=== PATIENT | female | born 1965 | race Asian ===

== ENCOUNTER 2024-12-28 04:05 | Inpatient (IN) | payer OTHER ==
[~2024-12-28] VITALS: Ht 162.6 cm; Wt 80.0 kg
--- NOTE | 2024-12-28 04:33 | ECG ---
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
--- NOTE | 2024-12-28 04:47 | ED.PDOC ---
History of Present Illness HPI Comments 59 year old female presents to the ED via EMS with a chief complaint of syncope onset today (12/28/24). Per EMS, patient experienced syncopal episode, unknown down time, BGL was 152. Patient states she began experiencing dizziness, sweats prior to syncopal episode. She experienced similar symptoms about 2 weeks ago. Denies any nausea, vomiting, diarrhea, headache, chest pain, shortness of breath, dysuria. No other symptoms or modifying factors present at this time. 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 APPRENTICE History: No Pertinent MOLDER APPRENTICE History Family History Family History: Reviewed,noncontributory to illness, No family hx of Cancer, No family hx of DM, No family hx of Heart yosef, No family hx of HTN, No family hx ofKidney yosef, No family hx of Liver yosef, No family hx of Lung yosef, No family hx of Stroke Social History Smoker: Non-Smoker Alcohol: Denies ETOH Use Drugs: Denies Drug Use Lives In: Home Constitutional: reports: sweats; denies: chills, diaphoresis, fatigue, fever, malaise, weakness, others EENTM: denies: blurred vision, double vision, ear bleeding, ear discharge, ear drainage, ear pain, ear ringing, eye pain, eye redness, hearing loss, mouth pain, mouth swelling, nasal discharge, nose bleeding, nose congestion, nose pain, photophobia, tearing, throat pain, throat swelling, voice changes, others Respiratory: denies: cough, hemoptysis, orthopnea, SOB at rest, shortness of breath, SOB with excertion, stridor, wheezing, others Cardiovascular: denies: chest pain, dizzy spells, diaphoresis, Dyspnea on exertion, edema, irregular heart beat, left arm pain, lightheadedness, palpitations, PND, syncope, others Gastrointestinal: denies: abdomen distended, abdominal pain, blood streaked bowels, constipated, diarrhea, dysphagia, difficulty swallowing, hematemesis, melena, nausea, poor appetite, poor fluid intake, rectal bleeding, rectal pain, vomiting, others Genitourinary: denies: abnormal vagina bleeding, burning, dyspareunia, dysuria, flank pain, frequency, hematuria, incontinence, pain, , vagina discharge, urgency, others Neurological: reports: dizziness, others (syncope); denies: fainting, headache, left sided numbness, left sided weakness, numbness, paresthesia, pre-existing deficit, right sided numbness, right sided weakness, seizure, speech problems, tingling, tremors, weakness Musculoskeletal: denies: back pain, gout, joint pain, joint swelling, muscle pain, muscle stiffness, neck pain, others Integumetry: denies: bruises, change in color, change in hair/nails, dryness, laceration, lesions, lumps, rash, wounds, others Hematologic/Lymphatic: denies: anemia, blood clots, easy bleeding, easy bruising, swollen glands, others Endocrine: denies: excessive hunger, excessive sweating, excessive thirst, excessive urination, flushing, intolerance to cold, intolerance to heat, unexplained weight gain, unexplained weight loss, others Psychiatric: denies: anxiety, bipolar disorder, depression, hopeless, panic disorder, schizophrenia, sleepless, suicidal, others All Other Systems: Reviewed and Negative Physical Exam General Appearance: Normal HEENT: Normal ENT Inspection, Pharynx Normal, TMs Normal Neck: Full Range of Motion, Non-Tender, Normal, Normal Inspection Respiratory: Chest Non-Tender, Lungs Clear, No Accessory Muscle Use, No Respiratory Distress, Normal Breath Sounds Cardiovascular: No Edema, No JVD, No Murmur, No Gallop, Normal Peripheral P ulses, Regular Rate/Rhythm Breast Exam: Deferred Gastrointestinal: No Organomegaly, Non Tender, No Pulsatile Mass, Normal Bowel Sounds, Soft Genitalia: Deferred Pelvic: Deferred Rectal: Deferred Extremities: No calf tenderness, Normal capillary refill, Normal inspection, Normal range of motion, Non-tender, No pedal edema Musculoskeletal : Apperance: Normal Neurologic: Alert, land developer II-XII nml as Tested, No Motor Deficits, Normal Affect, Normal Mood, No Sensory Deficits Cerebellar Function: Normal Reflexes: Normal Skin: Dry, Normal Color, Warm Lymphatic: No Adenopathy Was a procedure done? Was a procedure done?: No Differential Dx Considerations may include: ACS, CVA, viral syndrome, electrolyte abnormality, infectious etiology, cardiac arrhythmia X-Ray, Labs, Meds, VS Vital Signs Date Time Temp Pulse Resp B/P (MAP) Pulse Ox O2 Delivery O2 Flow Rate FiO2 12/28/24 04:24 97.8 72 18 117/75 (89) 98 97.8 12/28/24 04:15 67 Lab Test 12/28/24 05:01 Range/Units White Blood Count 5.6 4.4-10.8 10^3/uL Red Blood Count 4.46 4.0-5.20 10^6/uL Hemoglobin 14.0 12.2-16.2 g/dL Hematocrit 40.8 36.0-46.0 % Mean Corpuscular Volume 91.6 80.0-100.0 fL Mean Corpuscular Hemoglobin 31.4 28.0-32.0 pg Mean Corpuscular Hemoglobin Concent 34.3 32.0-36.0 g/dL Red Cell Distribution Width 12.6 11.8-14.3 % Platelet Count 229 140-450 10^3/uL Mean Platelet Volume 8.6 6.9-10.8 fL Neutrophils (%) (Auto) 61.6 37.0-80.0 % Lymphocytes (%) (Auto) 30.7 10.0-50.0 % Monocytes (%) (Auto) 5.0 0.0-12.0 % Eosinophils (%) (Auto) 1.9 0.0-7.0 % Basophils (%) (Auto) 0.8 0.0-2.0 % Neutrophils # (Auto) 3.4 1.6-8.6 10 ^3/uL Lymphocytes # (Auto) 1.7 0.4-5.4 10 ^3/uL Monocytes # (Auto) 0.3 0-1.3 10 ^3/uL Eosinophils # (Auto) 0.1 0-0.8 10 ^3/uL Basophils # (Auto) 0 0-0.2 10 ^3/uL Nucleated Red Blood Cells 0.0 % Sodium Level 139 136-145 mmol/L Potassium Level 3.8 3.5-5.1 mmol/L Chloride Level 105 98-107 mmol/L Carbon Dioxide Level 23 20-31 mmol/L Anion Gap 11 5-15 Blood Urea Nitrogen 11 9-23 mg/dL Creatinine 0.73 0.550-1.02 mg/dL Glomerular Filtration Rate Calc 96 >90 mL/min BUN/Creatinine Ratio 15.1 10.0-20.0 Serum Glucose 163 H 74-106 mg/dL Calcium Level 10.0 8.7-10.4 mg/dL Troponin I High Sensitivity < 3 L </=34 ng/L Time of 1ST Reevaluation: 05:00 Reevaluation 1ST: Unchanged Patient Education/Counseling: Diagnosis, Treatment, Prognosis Family Education/Counseling: No Family Present SEPSIS Sepsis Screen Date sepsis recognized/suspect: Dec 28, 2024 Time Sepsis recognized/suspect: 412 Recent Procedure: No On Antibiotic Therapy: No Respiratory Rate >20: No Heart Rate >90: No Temp<36 C (96.8 F) or >38.3 C: No SBP <90 or MAP <65 mmHG: No New Acute Mental Status Change: No Is the patient on CPAP, BIPAP,: No Physician Orders Urinalysis (12/28/24 04:32) Chest Portable (12/28/24 04:32) Head Without Contrast (12/28/24 04:32) Troponin-I Hs (12/28/24 05:32) Troponin-I Hs (12/28/24 07:32) Electrocardigram (12/28/24 05:32) Electrocardigram (12/28/24 07:32) Vital Signs Date Time Temp Pulse Resp B/P (MAP) Pulse Ox O2 Delivery O2 Flow Rate FiO2 12/28/24 04:24 97.8 72 18 117/75 (89) 98 97.8 12/28/24 04:15 67 Laboratory Tests Test 12/28/24 05:01 White Blood Count 5.6 10^3/uL (4.4-10.8) Departure 1 Departure Time of Disposition: 05:47 (Patient presented with syncope today and should be admitted. Data: 1. I ordered and reviewed the result of at least 3 labs including a CBC, BMP, and troponin. 2. I independently interpreted the following tests: EKG which shows a sinus arrhythmia and a chest x-ray which shows benign chest and a CT head which shows benign brain.Risk:This patient has a high risk of morbidity due to further diagnostic testing or treatment and may suffer from an acute cardiac, neurologic, or infectious disorder. Rationale: Patient should be admitted to the hospital for further management.) Impression: Primary Impression: Syncope and collapse Additional Impressions: Generalized weakness Dizziness Disposition: ADMITTED INPATIENT Admit to: Med Surg Condition: Guarded Critical Care Note Critical Care Time?: Yes Critical care comment: Syncope and collapse Authorized and Performed by: Eduar Hyatt MD Total critical care time: Approximately 39 minutes Due to a high probability of clinically significant, life threatening deterioration, the patient required my highest level of preparedness to intervene emergently and I personally spent this critical care time directly and personally managing the patient. This critical care time included obtaining a history; examining the patient; pulse oximetry; ordering and review of studies; arranging urgent treatment with development of a management plan; evaluation of patient's response to treatment; frequent reassessment; and, discussions with other providers. This critical care time was performed to assess and manage the high probability of imminent, life-threatening deterioration that could result in multi-organ failure. It was exclusive of separately billable procedures and treating other patients and teaching time. Please see my other sections and the rest of the note for further information on patient assessment and treatment. Stability Stability form required: No I personally scribed for EDUAR HYATT MD ([email or web address]) on 12/28/24 at 04:47. Electronically submitted by Isabella Soto ([email or web address]). EDUAR HYATT MD Dec 28, 2024 04:47
--- NOTE | 2024-12-28 05:12 | DVH ---
CHEST RADIOGRAPH Indication: dizziness Technique: Single frontal view of the chest was obtained COMPARISON: None FINDINGS: Lines and Tubes: None Lungs: Clear Pleura: No effusion. No pneumothorax. Cardiomediastinal contours: Unremarkable Bones: Unremarkable IMPRESSION: No acute disease.
--- NOTE | 2024-12-28 05:17 | DVH ---
EXAM: CT HEAD WITHOUT CONTRAST HISTORY: dizziness COMPARISON: None TECHNIQUE: Noncontrast axial CT images of the head were performed. Sagittal and coronal reformatted i mages were obtained. This CT exam was performed using 1 or more of the following dose reduction techn iques: Automated exposure control, adjustment of the mA and/or kv according to patient size, or the u se of iterative reconstruction techniques. Radiation Dose: CTDI volume is 52.27 mGy. Dose-length product is 838.01 mGy*cm FINDINGS: No intracranial hemorrhage, mass, midline shift, hydrocephalus, or evidence of acute large vessel inf arct. The partially-visualized paranasal sinuses are clear. There is a left josh bullosa. Probable Postoperative changes of rhinoplasty. The bilateral mastoid air cells and middle ear spaces are clear . No cranial fracture or scalp edema. Probable left frontal supraorbital scalp scarring. IMPRESSION: No acute intracranial process.
[2024-12-28 05:33] LABS: Basophils # (auto) 0 10 ^3/uL (0-0.2); Basophils % (auto) 0.8 % (0.0-2.0); Eosinophils # (auto) 0.1 10 ^3/uL (0-0.8); Eosinophils % (auto) 1.9 % (0.0-7.0); Hematocrit 40.8 % (36.0-46.0); Lymphocytes # (auto) 1.7 10 ^3/uL (0.4-5.4); Lymphocytes % (auto) 30.7 % (10.0-50.0); Mean Corpuscular Hemoglobin 31.4 pg (28.0-32.0); Mean Corpuscular Hgb Conc. 34.3 g/dL (32.0-36.0); Mean Corpuscular Volume 91.6 fL (80.0-100.0); Monocytes # (auto) 0.3 10 ^3/uL (0-1.3); Neutrophils # (auto) 3.4 10 ^3/uL (1.6-8.6); Neutrophils % (auto) 61.6 % (37.0-80.0); Platelet Count (auto) 229 10^3/uL (140-450); Red Blood Cells 4.46 10^6/uL (4.0-5.20); Red Cell Distribution Width 12.6 % (11.8-14.3); White Blood Cell 5.6 10^3/uL (4.4-10.8)
[2024-12-28 05:37] LABS: Chloride 105 mmol/L (98-107); Potassium 3.8 mmol/L (3.5-5.1); Sodium 139 mmol/L (136-145)
[2024-12-28 05:38] LABS: Anion Gap 11 (5-15); Carbon Dioxide 23 mmol/L (20-31)
[2024-12-28 05:43] LABS: BUN/Creatinine Ratio 15.1 (10.0-20.0); Blood Urea Nitrogen 11 mg/dL (9-23)
[2024-12-28 05:44] LABS: Glucose 163 mg/dL (74-106)
[2024-12-28 07:45] LABS: Urine Bacteria None Seen /hpf (None Seen)
[2024-12-28 08:04] LABS: Urine Blood Negative /uL (Negative); Urine Clarity Clear (Clear); Urine Color Light-Yellow (Yellow); Urine Protein, UAD Negative (Negative); Urine Specific Gravity 1.009 (1.001-1.035); Urine Squamous Epithelial Cell FEW /hpf (<5); Urine Urobilinogen Normal (Negative); Urine WBC 11 /HPF (0-5)
[2024-12-28] MEDS ORDERED: HYDROcodone-ACET 5/325MG TAB PO PRN (08:15)
[2024-12-28] MEDS ORDERED: DOCUSATE SOD 100 MG CAP PO PRN (08:15)
[2024-12-28] MEDS ORDERED: ONDANSETRON HCL 4 MG/2 ML VIAL IV PRN (08:15)
[2024-12-28] MEDS ORDERED: NITROGLYCERIN 0.4 MG SL TAB SL PRN (08:15)
[2024-12-28] MEDS ORDERED: DEXTROSE (50%) 50ML SYRG IV PRN (08:15)
[2024-12-28] MEDS ORDERED: MORPHINE SULFATE INJ 2 MG/ml SYRG IV PRN (08:15)
[2024-12-28] MEDS ORDERED: LOSA-535 PO (08:59)
[2024-12-28] MEDS ORDERED: METF-370 PO (08:59)
[2024-12-28] MEDS ORDERED: ATOR10TA52 PO (08:59)
--- NOTE | 2024-12-28 09:10 | DVHHP2 ---
History of Present Illness Reason for Visit: Syncope History of Present Illness Cheryl Alvarado, is a 59-year-old female with past medical history of hypertension, hyperlipidemia, and diabetes who came to the hospital after a syncopal episode. Patient states she woke up early this morning to go to the bathroom. While walking to the bathroom she began to feel dizzy, hot, nauseated, and then had a syncopal episode. When she came around she called for her spouse, he came to her in the bathroom, and then she had another syncopal episode. She states she has never had anything like this before. Cardiovascular: HTN, hyperipidemia Endocrine: Diabetes Past Surgical History: Hysterectomy Smoke: No ALCOHOL: none Drugs: None Lives: with Family Domestic Violence: Neg Review of Systems Constitutional: No: Fever, Chills, Sweats, Weakness, Malaise, Other Eyes: No: Pain, Vision change, Conjunctivae inflammation, Eyelid inflammation, Other, Redness ENT: No: Ear pain, Ear discharge, Nose pain, Nose discharge, Nose congestion, Mouth pain, Mouth swelling, Throat pain, Throat swelling, Other Respiratory: No: Cough, Dry, Shortness of breath, SOB with excertion, Wheezing, Hemoptysis, Pleuritic Pain, Sputum, Wheezing, Other Cardiovascular: No: Chest Pain, Palpitations, Orthopnea, Paroxysmal Noc. Dyspnea, Edema, Lt Headedness, Other Gastrointestinal: No: Nausea, Vomiting, Abdominal Pain, Diarrhea, Constipation, Melena, Hematochezia, Other Genitourinary: No Dysuria, No Frequency, No Incontinence, No Hematuria, No Retention, No Other Musculoskeletal: No: other, neck pain, shoulder pain, arm pain, back pain, hand pain, leg pain, foot pain Skin: No: Rash, Lesions, Jaundice, Bruising, Other Neurological: Weakness, Other (syncope); No: Numbness, Incoordination, Change in speech, Confusion, Seizures Allergies: Coded Allergies: No Known Drug Allergy (Verified Allergy, Unknown, 12/28/24) Medications Current Medications Medications Dose Ordered Sig/Xiomara Route Start Time Stop Time Status Last Admin Dose Admin Acetaminophen/ Hydrocodone Bitart 1 tab Q4HP PRN PO 12/28/24 08:15 UNV Ondansetron HCl 4 mg Q4HP PRN IV 12/28/24 08:15 UNV Docusate Sodium 100 mg BIDPRN PRN PO 12/28/24 08:15 UNV Acetaminophen 650 mg Q6HP PRN PO 12/28/24 08:15 UNV Nitroglycerin 0.4 mg Q5MINP PRN SL 12/28/24 08:15 UNV Morphine Sulfate 2 mg Q30M PRN IV 12/28/24 08:15 UNV Diagnostic Test (Pha) 1 strip ACHS 12/28/24 11:30 UNV Insulin Human Regular ACHS SC 12/28/24 11:30 UNV Dextrose 50 ml UD PRN IV 12/28/24 08:15 UNV Exam Vital Signs Vital Signs Date Time Temp Pulse Resp B/P (MAP) Pulse Ox O2 Delivery O2 Flow Rate FiO2 12/28/24 07:17 97.7 82 18 147/81 (103) 93 97.7 General Appearance: Alert, Oriented X3, Cooperative, No acute distress HEENT: Atraumatic, PERRLA, Mucous membr. moist/pink Respiratory: Clear to auscultation, Normal air movement Cardiovascular: Regular rate, Normal S1, Normal S2, No murmurs Abdominal: Normal bowel sounds, Soft, No tenderness, No hepatospenomegaly Extremities: No clubbing, No cyanosis, No edema, Normal pulses, No tenderness/swelling Skin: No rashes, No breakdown, No significant lesion Neuro: Normal gait, Normal speech, Strength at 5/5 X4 ext, Normal tone Psych/Mental Status: Mental status NL, Mood NL Labs/Xrays Labs Test 12/28/24 07:44 12/28/24 06:01 12/28/24 05:01 Range/Units Troponin I High Sensitivity < 3 L </=34 ng/L White Blood Count 5.6 4.4-10.8 10^3/uL Red Blood Count 4.46 4.0-5.20 10^6/uL Hemoglobin 14.0 12.2-16.2 g/dL Hematocrit 40.8 36.0-46.0 % Mean Corpuscular Volume 91.6 80.0-100.0 fL Mean Corpuscular Hemoglobin 31.4 28.0-32.0 pg Mean Corpuscular Hemoglobin Concent 34.3 32.0-36.0 g/dL Red Cell Distribution Width 12.6 11.8-14.3 % Platelet Count 229 140-450 10^3/uL Mean Platelet Volume 8.6 6.9-10.8 fL Neutrophils (%) (Auto) 61.6 37.0-80.0 % Lymphocytes (%) (Auto) 30.7 10.0-50.0 % Monocytes (%) (Auto) 5.0 0.0-12.0 % Eosinophils (%) (Auto) 1.9 0.0-7.0 % Basophils (%) (Auto) 0.8 0.0-2.0 % Neutrophils # (Auto) 3.4 1.6-8.6 10 ^3/uL Lymphocytes # (Auto) 1.7 0.4-5.4 10 ^3/uL Monocytes # (Auto) 0.3 0-1.3 10 ^3/uL Eosinophils # (Auto) 0.1 0-0.8 10 ^3/uL Basophils # (Auto) 0 0-0.2 10 ^3/uL Nucleated Red Blood Cells 0.0 % Sodium Level 139 136-145 mmol/L Potassium Level 3.8 3.5-5.1 mmol/L Chloride Level 105 98-107 mmol/L Carbon Dioxide Level 23 20-31 mmol/L Anion Gap 11 5-15 Blood Urea Nitrogen 11 9-23 mg/dL Creatinine 0.73 0.550-1.02 mg/dL Glomerular Filtration Rate Calc 96 >90 mL/min BUN/Creatinine Ratio 15.1 10.0-20.0 Serum Glucose 163 H 74-106 mg/dL Calcium Level 10.0 8.7-10.4 mg/dL CHEST RADIOGRAPH FINDINGS: Lines and Tubes: None Lungs: Clear Pleura: No effusion. No pneumothorax. Cardiomediastinal contours: Unremarkable Bones: Unremarkable IMPRESSION: No acute disease. EXAM: CT HEAD WITHOUT CONTRAST FINDINGS: No intracranial hemorrhage, mass, midline shift, hydrocephalus, or evidence of acute large vessel infarct. The partially-visualized paranasal sinuses are clear. There is a left josh bullosa. Probable Postoperative changes of rhinoplasty. The bilateral mastoid air cells and middle ear spaces are clear. No cranial fracture or scalp edema. Probable left frontal supraorbital scalp scarring. IMPRESSION: No acute intracranial process. Assessment/Plan Assessment/Plan Assessment: Syncope and collapse, Hypertension, Diabetes, Hyperlipidemia, Plan: Admit to Tele, Neurology consult, Consider cardiology consult, ECHO, Carotid duplex, Continuous telemetry monitoring, Home medications reconciled, Plan discussed with: Patient, Spouse My Orders Orders - LORNE SHAH Procedure Category Date Status Time Admit ADMIT 12/28/24 Transmitted 08:08 Code Status CODE 12/28/24 Transmitted 08:08 2 Gm Sodium Diet DIET 12/28/24 Transmitted Breakfast Hydrocodone-Acet PHA 12/28/24 Logged 5/325mg Tab ([place] 08:15 Ondansetron Hcl PHA 12/28/24 Logged (Zofran) 08:15 Docusate Sodium PHA 12/28/24 Logged Capsule (Colace 08:15 Fall Risk Precautions ROSA 12/28/[address] 08:08 Complete Blood Count LAB 12/29/24 Verified 04:00 Comprehensive LAB 12/29/24 Verified Metabolic Panel 04:00 Echo 2d Mode Cardiac US 12/28/24 Logged DOP 08:08 Carotid Duplx W Color US 12/28/24 Logged DOP 08:08 Condition: Serious ROSA 12/28/24 In Process 08:08 Acetaminophen Tablet PHA 12/28/24 Logged (Tylenol Tablet) 08:15 Nitroglycerin PHA 12/28/24 Logged Sublingual (Ntrostat 08:15 Morphine Sulfate PHA 12/28/24 Logged Injection 08:15 Stat Ekg For Chest ROSA 12/28/24 In Process Pain 08:08 Notify Of Changes BANNER 12/28/24 In Process From Base 08:08 Dispatcher Clerk For BANNER 12/28/24 In Process 24 Hours 08:08 Emergency Dysrhythmia BANNER 12/28/24 In Process Protocol 08:08 Rhythm Strips Once BANNER 12/28/24 In Process Every Shift 08:08 Oxygen By Nasal RT 12/28/24 Transmitted Cannula 08:08 Glucose Blood PHA 12/28/24 Logged (Accu-Chek Comfort 11:30 Insulin R (Human) PHA 12/28/24 Logged (Insulin R) 11:30 Dextrose 50% Syringe PHA 12/28/24 Logged 08:15 * Neurology Consult CONS 12/28/24 Transmitted 08:08 Date of Service: Dec 28, 2024 Billing Provider: LORNE SHAH Common Visit Codes: [id number] INP/OBS CARE (MOD) LORNE SHAH Dec 28, 2024 09:10
--- NOTE | 2024-12-28 09:47 | DVH ---
BILATERAL DUPLEX CAROTID ULTRASOUND: HISTORY: Syncope and collapse COMPARISON: None TECHNIQUE: Hand held high-resolution real-time ultrasound and color-flow doppler analysis is utilized to evaluate the bilateral carotid arteries. Velocity measurements are validated with angiographic measurements. Velocity criteria are extrapolate d from diameter data as defined by the society of radiologists in ultrasound consensus conference rad iology 2003; 229;340-346. FINDINGS: There is no focal elevated velocity or color aliasing to suggest significant carotid artery stenosis. There is normal antegrade flow in both vertebral arteries. Right: Peak systolic velocity common carotid Artery: 77 Cm/s Peak systolic velocity internal carotid Artery: 62 Cm/s Peak systolic velocity external carotid Artery: 98 Cm/s There is mild plaque seen at the carotid bulb and proximal right internal carotid artery. Left: Peak systolic velocity common carotid Artery: 76 Cm/s Peak systolic velocity internal carotid Artery: 84 Cm/s Peak systolic velocity external carotid Artery: 110 Cm/s IMPRESSION: 1. No sonographic evidence of carotid artery stenosis. 2. Antegrade vertebral arteries bilaterally 3. Mild plaque at the right carotid bulb and proximal carotid artery >>> The Society of radiologists in ultrasound convening to multidisciplinary panel of experts in the field of vascular ultrasonography (US) to con to a consensus regarding Doppler US for assistance in t he diagnosis of carotid artery stenosis. The panel's consensus statement is believed to represent a r easonable position on the bases of analysis of available literature and panelists' experience. [place]anes el ements of the statement include the following:n(A) All internal carotid artery (ICA) examination shou ld be performed with suresh-scale, color Doppler, and spectral Doppler US.n(C) ICA peak systolic veloci ty (PSV) and presence of plaque on suresh-scale and/or color Doppler images are primarily used in diagn osis and grading of ICA stenosis: two additional parameters, [id number] carotid artery PSV ratio a nd ICA and-diastolic velocity may also be used when clinical or technical factors raise concern and I CA PSV may not be call center representative of the extent of disease.n(E) The final report should discuss veloc ity measurements and suresh-scale and color Doppler findings. Study limitation should be noted when the y exist. The conclusion should state an estimated degree of ICA stenosis and reflected in the above c ategories. The pain also considered various technical aspects of carotid ultrasound and methods for q uality assessment and identified several important and answered questions meriting future research.
[2024-12-28] MEDS: LOSARTAN POTASSIUM 50 MG TAB PO SCH (10:00)
[2024-12-28] MEDS: ACCU-CHEK COMFORT CURVE STRIP VI SCH (11:32)
[2024-12-28 11:35] VITALS: BP 114/67; PULSE 82; RESP 16; TEMP 98; O2SAT 94
[2024-12-28] MEDS: InsuLIN REG 1unit/0.01ml Soln (100units/ml) SC SCH (11:40)
[2024-12-28 14:14] VITALS: BP 121/66; PULSE 91; RESP 15; TEMP 98.5; O2SAT 92
[2024-12-28 21:00] VITALS: BP 100/64; PULSE 73; RESP 18; TEMP 98.1; O2SAT 95
--- NOTE | 2024-12-28 21:21 | DVHINCON2 ---
Date of service: Dec 28, [address] Conti Reason for Consultation Syncope and collapse History of Present Illness Ms. Alvarado is a 59 years old right-handed female with a history of prediabetes, he came to the [facility] on 12/28/2024 with a chief complaint of passing out. At this time, she is alert and fully oriented, she provided the following history Around 12/28/2024 3:00 a.m. when she woke up for bathroom, she developed dizziness/intense spinning sensation, whole-body burning, nausea, whole-body sweating, followed by falling and then she passed out for about 1 minute, on waking up she was confused but she was able to recognize that she was at home, when she was trying to get up, similar symptoms and then she passed out less than 1 minutes, on waking up, she was chronic to her partner door for help, when he trying to get up, she had the symptoms again and pass out. She denies associated headache, chest pain, she denies recent acute illness such as chills, fever, coughing, nausea, vomiting, diarrhea She has two other passing out event with lasts one about 10 years ago, the 1st one happened at work, after she ate very hot chills, she had leg weakness, not able to walk, and shooting she passed out briefly. The 2nd one happened after surgery, with a lot bleeding, when she was walking towards parking lot, she has a dizziness/lightheadedness and passed out briefly Urinalysis, 12/28/2024: WBC: 11, urine leukocyte esterase: 1+ CBC, 12/28/2024: Unremarkable BMP 12/28/2024: Unremarkable Carotid Doppler, 12/28/2024: 1. No sonographic evidence of carotid artery stenosis. 2. Antegrade vertebral arteries bilaterally 3. Mild plaque at the right carotid bulb and proximal carotid artery CT head, 12/28/2024: No acute intracranial process. Past Medical History Prediabetes Past Surgical History Hysterectomy Family History: Patient reports no known family medical history. Family History She is not aware of major medical problems Social History She has no history of tobacco smoking, drug or alcohol abuse Allergies: Coded Allergies: No Known Drug Allergy (Verified Allergy, Unknown, 12/28/24) Home Meds Reported Medications Losartan Potassium (Losartan Potassium) 100 Mg Tab, 1 TAB PO DAILY 12/28/24 Atorvastatin Calcium (ATORVASTATIN CALCIUM) 10 Mg Tab, 1 TAB PO HS 12/28/24 Metformin Hydrochloride (Metformin Hcl) 500 Mg Tab, 1 TAB PO DAILY 12/28/24 Current Medications Current Medications Medications (Trade) Dose Ordered Sig/Xiomara Route PRN Reason Start Time Stop Time Status Last Admin Acetaminophen/ Hydrocodone Bitart (Bomoseen 5/325MG Tab) 1 tab Q4HP PRN PO MODERATE PAIN (4-6 PAIN SCALE) 12/28/24 08:15 Ondansetron HCl (Zofran) 4 mg Q4HP PRN IV NAUSEA / VOMITING 12/28/24 08:15 Docusate Sodium (Colace Capsule) 100 mg BIDPRN PRN PO FOR CONSTIPATION 12/28/24 08:15 Acetaminophen (Tylenol Tablet) 650 mg Q6HP PRN PO PAIN SCALE 1-3 OR TEMP>100.4 12/28/24 08:15 Nitroglycerin (Ntrostat Sublingual) 0.4 mg Q5MINP PRN SL FOR CHEST PAIN 12/28/24 08:15 Morphine Sulfate 2 mg Q30M PRN IV FOR CHEST PAIN 12/28/24 08:15 Diagnostic Test (Pha) (Accu-Chek Comfort Curve T) 1 strip ACHS 12/28/24 11:30 12/28/24 16:51 Insulin Human Regular (InsuLIN R) ACHS SC 12/28/24 11:30 12/28/24 16:51 Dextrose 50 ml UD PRN IV Blood Sugar LESS THAN 60 12/28/24 08:15 Atorvastatin Calcium (Lipitor) 10 mg HS PO 12/28/24 22:00 Losartan Potassium (Cozaar Tablet) 100 mg DAILY PO 12/28/24 10:00 Review of Systems As above, the other systems are negative Vital Signs Vital Signs Date Time Temp Pulse Resp B/P (MAP) Pulse Ox O2 Delivery O2 Flow Rate FiO2 12/28/24 14:14 98.5 91 15 121/66 (84) 92 98.5 12/28/24 09:24 Room Air Physical Exam GENERAL EXAM: General: the patient is well developed and nourished. No acute distress. HEENT: Normocephalic, neck is supple, no carotid bruits. No mass RESPIRATORY: Normal respiratory effort with symmetrical lung expansion. Lungs clear to auscultation. CARDIOVASCULAR: Regular rate and rhythm with no murmurs. S1, S2. ABDOMEN: Soft, nontender, normal bowel sound NEUROLOGICAL: MENTAL STATUS: Awake and alert. Oriented to person, place, time and general circumstances. Able to give personal history. SPEECH, LANGUAGE, HIGHER CORTICAL FUNCTION: no aphasia or dysathria. CRANIAL NERVES: #2: Intact visual lamb to confrontation. The optic discs were sharp. #3,4,6: Pupils are equal, round and reactive. EOMs full and conjugate. #5: Facial sensation intact in all three divisions bilaterally. Mandibular strength intact. #7: Facial muscles symmetrical and strength intact. #8: Hearing grossly normal to voice. #9,10: Uvula and soft palate rise in the midline. Swallow and voice are normal. #11: Trapezius and sternomastoid strength intact bilaterally. #12: Tongue midline. No fasciculations or atrophy. SENSATION: Sensation to touch and pinprick is normal. MOTOR: Normal tone in the upper and lower extremity. Normal muscle bulk. No fasciculations. No abnormal movements or posturing. Muscle strength of the major groups in the upper extremities is 5/5. Muscle strength of the major groups in the lower extremities is 5/5. REFLEXES: Deep tendon reflexes normal and symmetrical. No pathological reflexes. CEREBELLAR/COORDINATION: Finger to nose and heel to [place] are normal bilaterally. GAIT/STATION: deferred. Labs/Diagnostic Data Labs Test 12/28/24 16:37 12/28/24 07:44 12/28/24 06:01 12/28/24 05:01 Range/Units POC Glucose 204 H 70-106 mg/dl Urine Color Light-yellow Yellow Urine Clarity Clear Clear Urine pH 6.0 5.0-9.0 Urine Specific [place] 1.009 1.001-1.035 Urine Protein Negative Negative Urine Ketones Negative Negative Urine Blood Negative Negative /uL Urine Nitrite Negative Negative Urine Bilirubin Negative Negative Urine Urobilinogen Normal Negative mg/dL Urine Leukocyte Esterase 2+ Negative /uL Urine RBC 1 0 - 4 /hpf Urine Microscopic WBC 11 H 0-5 /HPF Urine Squamous Epithelial Cells Few <5 /hpf Urine Bacteria None seen None Seen /hpf Urine Glucose Normal Normal mg/dL Troponin I High Sensitivity < 3 L </=34 ng/L White Blood Count 5.6 4.4-10.8 10^3/uL Red Blood Count 4.46 4.0-5.20 10^6/uL Hemoglobin 14.0 12.2-16.2 g/dL Hematocrit 40.8 36.0-46.0 % Mean Corpuscular Volume 91.6 80.0-100.0 fL Mean Corpuscular Hemoglobin 31.4 28.0-32.0 pg Mean Corpuscular Hemoglobin Concent 34.3 32.0-36.0 g/dL Red Cell Distribution Width 12.6 11.8-14.3 % Platelet Count 229 140-450 10^3/uL Mean Platelet Volume 8.6 6.9-10.8 fL Neutrophils (%) (Auto) 61.6 37.0-80.0 % Lymphocytes (%) (Auto) 30.7 10.0-50.0 % Monocytes (%) (Auto) 5.0 0.0-12.0 % Eosinophils (%) (Auto) 1.9 0.0-7.0 % Basophils (%) (Auto) 0.8 0.0-2.0 % Neutrophils # (Auto) 3.4 1.6-8.6 10 ^3/uL Lymphocytes # (Auto) 1.7 0.4-5.4 10 ^3/uL Monocytes # (Auto) 0.3 0-1.3 10 ^3/uL Eosinophils # (Auto) 0.1 0-0.8 10 ^3/uL Basophils # (Auto) 0 0-0.2 10 ^3/uL Nucleated Red Blood Cells 0.0 % Sodium Level 139 136-145 mmol/L Potassium Level 3.8 3.5-5.1 mmol/L Chloride Level 105 98-107 mmol/L Carbon Dioxide Level 23 20-31 mmol/L Anion Gap 11 5-15 Blood Urea Nitrogen 11 9-23 mg/dL Creatinine 0.73 0.550-1.02 mg/dL Glomerular Filtration Rate Calc 96 >90 mL/min BUN/Creatinine Ratio 15.1 10.0-20.0 Serum Glucose 163 H 74-106 mg/dL Calcium Level 10.0 8.7-10.4 mg/dL Assessment Recurrent passing out on 12/28/2024 Likely syncopal event Rule out TIA Rule out partial complex seizure Plan/Recommendation Monitoring Supportive treatment Telemetry Orthostatic vitals EEG MRI brain scan Syncopal precautions discussed Cardiology consultation More recommendation per clinical course Progress: Poor This medical document was created using an electronic medical record system with [employer] computerized dictation system. Although this document has been carefully reviewed, there may still be some phonetic and typographical errors. These areas are purely typographical due to imperfections of the software programs, and do not reflect any compromise in the patient's medical care. Plan discussed with: Patient, Other TRENA HERRERA MD Dec 28, 2024 21:21
[2024-12-28] MEDS: ATORVASTATIN 20 MG TAB PO SCH (21:46)
[2024-12-28] MEDS ORDERED: LORazepam 2MG/ML-1ML VIAL IV PRN (22:00)
[2024-12-28 22:27] VITALS: BP 128/75; PULSE 63; PULSE 68; RESP 18; TEMP 98.1; O2SAT 93; O2SAT 94
[2024-12-29] VITALS (10 sets, daily range): BP systolic 99–150; BP diastolic 63–90; PULSE 55–78; RESP 17–21; TEMP 96.4–98; O2SAT 91–98
[2024-12-29 06:52] LABS: Basophils # (auto) 0 10 ^3/uL (0-0.2); Basophils % (auto) 0.6 % (0.0-2.0); Eosinophils # (auto) 0.1 10 ^3/uL (0-0.8); Eosinophils % (auto) 2.4 % (0.0-7.0); Hematocrit 39.8 % (36.0-46.0); Hemoglobin 13.7 g/dL (12.2-16.2); Lymphocytes # (auto) 1.8 10 ^3/uL (0.4-5.4); Lymphocytes % (auto) 36.2 % (10.0-50.0); Mean Corpuscular Hemoglobin 31.7 pg (28.0-32.0); Mean Corpuscular Hgb Conc. 34.4 g/dL (32.0-36.0); Mean Corpuscular Volume 92.2 fL (80.0-100.0); Monocytes # (auto) 0.3 10 ^3/uL (0-1.3); Monocytes % (auto) 6.9 % (0.0-12.0); Neutrophils # (auto) 2.6 10 ^3/uL (1.6-8.6); Neutrophils % (auto) 53.9 % (37.0-80.0); Nucleated Red Blood Cells % 0.2 %; Platelet Count (auto) 227 10^3/uL (140-450); Red Blood Cells 4.32 10^6/uL (4.0-5.20); Red Cell Distribution Width 12.6 % (11.8-14.3); White Blood Cell 4.9 10^3/uL (4.4-10.8)
[2024-12-29 07:03] LABS: Albumin 4.5 g/dL (3.2-4.8); Alkaline Phosphatase 62 U/L (46-116); Anion Gap 11 (5-15); BUN/Creatinine Ratio 14.5 (10.0-20.0); Bilirubin, Total 0.7 mg/dL (0.2-1.0); Blood Urea Nitrogen 10 mg/dL (9-23); Carbon Dioxide 23 mmol/L (20-31); Chloride 106 mmol/L (98-107); Potassium 3.9 mmol/L (3.5-5.1); Sodium 140 mmol/L (136-145); Total Protein 6.9 g/dL (5.7-8.2)
[2024-12-29 07:05] LABS: Alanine Aminotransferase 56 U/L (7-40); Aspartate Aminotransferase 43 U/L (<34); Glucose 141 mg/dL (74-106)
--- NOTE | 2024-12-29 09:32 | DVH ---
CLINICAL INDICATION: Acute loss of consciousness. Syncope. COMPARISON: CT dated 12/28/2024. TECHNIQUE: Multisequence multiplanar MRI images of the brain were obtained without contrast. FINDINGS: No acute infarct or hemorrhage. No mass or midline shift. Small, nonspecific 4 mm focus of FLAIR hyperintense signal in the left frontal lobe periventricular white matter, may be sequela of m ild chronic small-vessel ischemic disease. Ventricles and sulci are within normal limits. Basal ciste rns are patent. Cerebellum, brainstem, and midline structures are within normal limits. Paranasal sin uses are clear. Orbits are grossly unremarkable. IMPRESSION: 1. No evidence of acute intracranial abnormality. 2. Small 4 mm focus of FLAIR hyperintense signal in the left frontal lobe periventricular white matte r, nonspecific, but may be seen with mild chronic small-vessel ischemic disease. Demyelinating diseas e could also have a similar appearance in the appropriate clinical setting. Correlate with clinical findings.
[2024-12-29] MEDS: ACETAMINOPHEN 325 MG TAB PO PRN (10:27)
--- NOTE | 2024-12-29 12:31 | DVHINCON2 ---
Date Seen: Dec 29, 2024 Referring Physician MD Aldair Reason for Consultation Recurrent syncope History of Present Illness This is a 59-year-old female patient who presents to emergency room with chief complaint of multiple syncopal episodes. The patient reports that approximately two days ago at 3:00 a.m. she went to use the restroom. She states that after using the restroom she was walking back to bed and suddenly began to feel dizzy. She also describes generalized "hot" feeling. She reports loss of consciousness but denies hitting her head. She states that when she came back to consciousness, she started crawling back to bed and when she stood up she experienced the exact same symptoms as well as another syncopal event. Upon awakening from the event, she reports getting up and running towards her partner for help, sustaining one more syncopal episode. She states to have had three syncopal episodes within a 10 minute period. She came to the emergency room for further evaluation and cardiology has been consulted at this time for syncope. Initial twelve lead electrocardiogram reveals normal sinus rhythm without any significant ST segment changes. The patient denies any cardiac symptoms. Troponin levels have been negative. Significant past medical history includes hypertension, dyslipidemia, and type 2 diabetes mellitus. Past Medical History Past medical history reviewed. No other significant than mentioned above. Past Surgical History Hysterectomy Right breast lumpectomy Family History: Patient reports no known family medical history. Family History Family history reviewed. Social History Denies the use of tobacco, alcohol or illicit drugs. Allergies: Coded Allergies: No Known Drug Allergy (Verified Allergy, Unknown, 12/28/24) Home Meds Reported Medications Losartan Potassium (Losartan Potassium) 100 Mg Tab, 1 TAB PO DAILY 12/28/24 Atorvastatin Calcium (ATORVASTATIN CALCIUM) 10 Mg Tab, 1 TAB PO HS 12/28/24 Metformin Hydrochloride (Metformin Hcl) 500 Mg Tab, 1 TAB PO DAILY 12/28/24 Home Meds Home medications reviewed. Current Medications Current Medications Medications (Trade) Dose Ordered Sig/Xiomara Route PRN Reason Start Time Stop Time Status Last Admin Atorvastatin Calcium (Lipitor) 10 mg HS PO 12/28/24 22:00 12/28/24 21:46 Lorazepam (Ativan Inj) 1 mg ONCE PRN IV MRI 12/28/24 22:00 Review of Systems Constitutional: No symptom reported Ears, Nose, & Throat: No symptom reported Eyes: No symptom reported Neurological: Syncope Pulmonary/Respiratory: No symptoms reported Cardiovascular: No symptom reported Gastrointestinal: No symptom reported Genitourinary: No symptom reported Musculoskeletal: No symptom reported Skin: No symptom reported Psychiatric: No symptom reported Endocrine: No symptom reported Hematologic/Lymphatic: No symptom reported Vital Signs Vital Signs Date Time Temp Pulse Resp B/P (MAP) Pulse Ox O2 Delivery O2 Flow Rate FiO2 12/29/24 10:17 117/73 12/29/24 09:01 96.4 72 18 94 96.4 12/28/24 22:27 Room Air* 0 21 Physical Exam General Appearance: Cooperative. Well-developed. Well-nourished. No acute distress. Pulmonary/Respiratory: Clear, bilateral breaths sounds. Cardiovascular/Chest: Regular rate and rhythm. Peripheral Pulses: 2+ Radial (R). 2+ Radial (L). 2+ Pedal (R). 2+ Pedal (L) Abdominal Exam: Normal bowel sounds. Ankle Exam: Negative ankle edema Lower extremities: Negative lower extremity edema Neuro/Mental Status: A/OX4, coherent. Thoughts/Psych: Normal thought pattern. Appropriate mood and affect. Good judgment and insight. Appearance: No acute distress. Skin Exam: Normal inspection. Normal color. Warm and dry. Labs/Diagnostic Data Labs Test 12/29/24 11:19 12/29/24 05:56 12/28/24 07:44 12/28/24 06:01 Range/Units POC Glucose 117 H 70-106 mg/dl White Blood Count 4.9 4.4-10.8 10^3/uL Red Blood Count 4.32 4.0-5.20 10^6/uL Hemoglobin 13.7 12.2-16.2 g/dL Hematocrit 39.8 36.0-46.0 % Mean Corpuscular Volume 92.2 80.0-100.0 fL Mean Corpuscular Hemoglobin 31.7 28.0-32.0 pg Mean Corpuscular Hemoglobin Concent 34.4 32.0-36.0 g/dL Red Cell Distribution Width 12.6 11.8-14.3 % Platelet Count 227 140-450 10^3/uL Mean Platelet Volume 8.9 6.9-10.8 fL Neutrophils (%) (Auto) 53.9 37.0-80.0 % Lymphocytes (%) (Auto) 36.2 10.0-50.0 % Monocytes (%) (Auto) 6.9 0.0-12.0 % Eosinophils (%) (Auto) 2.4 0.0-7.0 % Basophils (%) (Auto) 0.6 0.0-2.0 % Neutrophils # (Auto) 2.6 1.6-8.6 10 ^3/uL Lymphocytes # (Auto) 1.8 0.4-5.4 10 ^3/uL Monocytes # (Auto) 0.3 0-1.3 10 ^3/uL Eosinophils # (Auto) 0.1 0-0.8 10 ^3/uL Basophils # (Auto) 0 0-0.2 10 ^3/uL Nucleated Red Blood Cells 0.2 % Sodium Level 140 136-145 mmol/L Potassium Level 3.9 3.5-5.1 mmol/L Chloride Level 106 98-107 mmol/L Carbon Dioxide Level 23 20-31 mmol/L Anion Gap 11 5-15 Blood Urea Nitrogen 10 9-23 mg/dL Creatinine 0.69 0.550-1.02 mg/dL Glomerular Filtration Rate Calc 101 >90 mL/min BUN/Creatinine Ratio 14.5 10.0-20.0 Serum Glucose 141 H 74-106 mg/dL Hemoglobin A1c 6.3 H <5.7 % A1C Calcium Level 10.0 8.7-10.4 mg/dL Magnesium Level 2.0 1.6-2.6 mg/dL Total Bilirubin 0.7 0.2-1.0 mg/dL Aspartate Amino Transferase (AST) 43 H <34 U/L Alanine Aminotransferase (ALT) 56 H 7-40 U/L Alkaline Phosphatase 62 46-116 U/L Total Protein 6.9 5.7-8.2 g/dL Albumin 4.5 3.2-4.8 g/dL Triglycerides Level 140 < 150 mg/dL Cholesterol Level 210 H < 200 mg/dL LDL Cholesterol 139 H < 100 mg/dL HDL Cholesterol 63 H 40-59 mg/dL Thyroid Stimulating Hormone (TSH) 1.36 0.55-4.78 uIU/mL Urine Color Light-yellow Yellow Urine Clarity Clear Clear Urine pH 6.0 5.0-9.0 Urine Specific [place] 1.009 1.001-1.035 Urine Protein Negative Negative Urine Ketones Negative Negative Urine Blood Negative Negative /uL Urine Nitrite Negative Negative Urine Bilirubin Negative Negative Urine Urobilinogen Normal Negative mg/dL Urine Leukocyte Esterase 2+ Negative /uL Urine RBC 1 0 - 4 /hpf Urine Microscopic WBC 11 H 0-5 /HPF Urine Squamous Epithelial Cells Few <5 /hpf Urine Bacteria None seen None Seen /hpf Urine Glucose Normal Normal mg/dL Troponin I High Sensitivity < 3 L </=34 ng/L Assessment Syncope, rule out cardiac etiology Hypertension Dyslipidemia Type 2 diabetes mellitus Plan/Recommendation We will continue with the following plan/recommendations (Dr. Rae): * Transthoracic echocardiogram to evaluate cardiac function * Bilateral carotid ultrasound: Shows no sonographic evidence of carotid artery stenosis * Orthostatic vital signs * Continue lipid-lowering agents * Close Cardiac surveillance: Notify cardiology team immediately for any ECG changes or arrhythmias * UDS Thank you for allowing us to care for this patient. Please call with any questions or concerns. Critical care time spent: 44 minutes This medical document was created using an electronic medical record system with voice recognition software and computerized dictation system. Although this document has been carefully reviewed, there might still be some phonetic and typographical errors. Occasional wrong-word or ``sound-alike substitutions may have occurred due to the inherent limitations of voice recognition software. These areas are purely typographical due to imperfections of the software programs and do not reflect any compromise in the patient's medical care. Please read the chart carefully and recognize, using context, where these substitutions have occurred. Plan discussed with: Patient NYHA Physical activity limitations: NA Date of Service: Dec 29, 2024 Billing Provider: ISELA LOCKWOOD Cardiology Common Codes: 60360-[id number] INP/OBS CARE (High) Cardiology Consultation Codes: [id number] CONSULT <45MIN ISELA LOCKWOOD Dec 29, 2024 12:31
[2024-12-29] MEDS: ATORVASTATIN 20 MG TAB PO SCH (21:34)
--- NOTE | 2024-12-29 23:32 | DVHPN2 ---
Progress Note - Dictate Date Seen: Dec 29, 2024 Medical Necessity Reason Pt with a Central, PICC or Fol: No Subjective MsArvin Alvarado is a 59 years old right-handed female with a history of prediabetes, he came to the [facility] on 12/28/2024 with a chief complaint of passing out. I have seen and examined the patient, talked to her nurse, she is doing fine, no new problems Orthostatic vitals were negative Urinalysis, 12/28/2024: WBC: 11, urine leukocyte esterase: 1+ CBC, 12/28/2024: Unremarkable BMP 12/28/2024: Unremarkable Carotid Doppler, 12/28/2024: 1. No sonographic evidence of carotid artery stenosis. 2. Antegrade vertebral arteries bilaterally 3. Mild plaque at the right carotid bulb and proximal carotid artery CT head, 12/28/2024: No acute intracranial process MR head, 12/29/2024: . No evidence of acute intracranial abnormality. 2. Small 4 mm focus of FLAIR hyperintense signal in the left frontal lobe periventricular white matter, nonspecific, but may be seen with mild chronic small-vessel ischemic disease. Demyelinating disease could also have a similar appearance in the appropriate clinical setting. Correlate with clinical findings. vital signs Vital Sign Date Time Temp Pulse Resp B/P (MAP) Pulse Ox O2 Delivery O2 Flow Rate FiO2 12/29/24 16:46 96.9 71 19 130/83 (99) 95 96.9 12/29/24 08:15 Nasal Cannula* 2 28 Total Intake and Output 12/28/24 12/28/24 12/29/24 15:00 23:00 07:00 Intake Total 200 ml Balance 200 ml medications Current Medications Medications Dose Ordered Sig/Xiomara Route Start Time Stop Time Status Last Admin Dose Admin Acetaminophen/ Hydrocodone Bitart 1 tab Q4HP PRN PO 12/28/24 08:15 Ondansetron HCl 4 mg Q4HP PRN IV 12/28/24 08:15 Docusate Sodium 100 mg BIDPRN PRN PO 12/28/24 08:15 Acetaminophen 650 mg Q6HP PRN PO 12/28/24 08:15 12/29/24 10:27 650 MG Nitroglycerin 0.4 mg Q5MINP PRN SL 12/28/24 08:15 Morphine Sulfate 2 mg Q30M PRN IV 12/28/24 08:15 Diagnostic Test (Pha) 1 strip ACHS 12/28/24 11:30 12/29/24 21:34 1 STRIP Insulin Human Regular ACHS SC 12/28/24 11:30 12/29/24 21:39 3 UNITS Dextrose 50 ml UD PRN IV 12/28/24 08:15 Losartan Potassium 100 mg DAILY PO 12/28/24 10:00 12/29/24 10:17 100 MG Lorazepam 1 mg ONCE PRN IV 12/28/24 22:00 Atorvastatin Calcium 20 mg HS PO 12/29/24 22:00 12/29/24 21:34 20 MG Patient Own Medication 1 Q8HPRN PRN PO 12/29/24 19:30 UNV objective General: the patient is well developed and nourished. No acute distress. MENTAL STATUS: Awake and alert. Oriented to person, place, time and general circumstances. Able to give personal history. SPEECH, LANGUAGE, HIGHER CORTICAL FUNCTION: no aphasia or dysathria. CRANIAL NERVES: Pupils are equal, round and reactive. EOMs full and conjugate.Facial sensation intact in all three divisions bilaterally. Mandibular strength intact. Facial muscles symmetrical and strength intact. SENSATION: Sensation to touch and pinprick is normal. MOTOR: Normal tone in the upper and lower extremity. Normal muscle bulk. No fasciculations. No abnormal movements or posturing. Muscle strength of the major in the lower extremities is 5/5. REFLEXES: Deep tendon reflexes normal and symmetrical. No pathological reflexes. CEREBELLAR/COORDINATION: Finger to nose and heel to durham are normal bilaterally. GAIT/STATION: deferred. laboratory and microbiology Laboratory Tests 12/29/24 05:56 Test 12/29/24 05:56 Range/Units Serum Glucose 141 H 74-106 mg/dL Problem List Recurrent passing out on 12/28/2024 Likely syncopal event Rule out TIA, less likely Rule out partial complex seizure, less likely Assessment/Plan Monitoring Supportive treatment Telemetry Syncopal precautions discussed Cardiology consultation This medical document was created using an electronic medical record system with [employer] system. Although this document has been carefully reviewed, there may still be some phonetic and typographical errors. These areas are purely typographical due to imperfections of the software programs, and do not reflect any compromise in the patient's medical care. Prognosis poor Plan discussed with: Patient, Other TRENA HERRERA MD Dec 29, 2024 23:32
[2024-12-30] VITALS (8 sets, daily range): BP systolic 113–139; BP diastolic 68–96; PULSE 56–81; RESP 18–20; TEMP 96.5–98; O2SAT 92–96
--- NOTE | 2024-12-30 00:13 | DVHEEG2 ---
Neurology EEG Procedural Note Procedural Note EXAM DATE: 06/30/2025 REFERRING DOCTOR: Dr. Herrera TECHNIQUE: Eighteen channels of EEG, 2 channels of EOG, and 1 channel of EKG were recorded using the International 10/20 system. CLINICAL DATA: The patient was referred for an EEG evaluation for the evidence of seizure disorder. MEDICATIONS: See the chart BACKGROUND ACTIVITY: While the patient was awake, the background activity consisted of well regulated []Hz rhythmic waveforms, symmetrically distributed over both posterior quadrants and was reactive to eye opening. ACTIVATION: Hyperventilation: Not done Photic Stimulation: Not done Sleep: Not seen IMPRESSION: This is a normal EEG. No focal, lateralized, or epileptiform features are noted. If clinically indicated to rule out a seizure disorder, recommend repeat EEG with sleep deprivation. The EKG channel showed a regular heart rate of 72/Min. [place] [address]. TRENA HERRERA MD Dec 30, 2024 00:12
--- NOTE | 2024-12-30 11:52 | DVHPN2 ---
Reviewed: Care Plan, H&P, Labs, Medications, Previous Orders, Radiology Changes from previous H/P or p: No Changes General: Per HPI Eyes: No Pain, No Vision change, No Conjunctivae inflammation, No Eyelid inflammation, No Other, No Redness ENT: No Ear pain, No Ear discharge, No Nose pain, No Nose discharge, No Nose congestion, No Mouth pain, No Mouth swelling, No Throat pain, No Throat swelling, No Other Cardiovascular: No Chest Pain, No Palpitations, No Orthopnea, No Paroxysmal Noc. Dyspnea, No Edema, No Lt Headedness, No Other Respiratory: No Cough, No Dry, No Shortness of breath, No SOB with excertion, No Wheezing, No Hemoptysis, No Pleuritic Pain, No Sputum, No Other Gastrointestinal: No Nausea, No Vomiting, No Abdominal Pain, No Diarrhea, No Constipation, No Melena, No Hematochezia, No Other Genitourinary: No Dysuria, No Frequency, No Incontinence, No Hematuria, No Retention, No Other Musculoskeletal: No other, No neck pain, No shoulder pain, No arm pain, No back pain, No hand pain, No leg pain, No foot pain Skin: No Rash, No Lesions, No Jaundice, No Bruising, No Other Objective Vitals Vital Signs Date Time Temp Pulse Resp B/P (MAP) Pulse Ox O2 Delivery O2 Flow Rate FiO2 12/30/24 10:25 133/93 12/30/24 08:54 96.5 59 18 94 96.5 66 72 12/29/24 20:00 Nasal Cannula* 2 28 Intake/Output Intake and Output 12/30/24 07:00 Intake Total 1340 ml Balance 1340 ml Intake Oral 1340 ml # Voids 5 Medications Current Medications Medications Dose Ordered Sig/Xiomara Route Start Time Stop Time Status Last Admin Dose Admin Acetaminophen/ Hydrocodone Bitart 1 tab Q4HP PRN PO 12/28/24 08:15 Ondansetron HCl 4 mg Q4HP PRN IV 12/28/24 08:15 Docusate Sodium 100 mg BIDPRN PRN PO 12/28/24 08:15 Acetaminophen 650 mg Q6HP PRN PO 12/28/24 08:15 12/29/24 10:27 650 MG Nitroglycerin 0.4 mg Q5MINP PRN SL 12/28/24 08:15 Morphine Sulfate 2 mg Q30M PRN IV 12/28/24 08:15 Diagnostic Test (Pha) 1 strip ACHS 12/28/24 11:30 12/30/24 11:30 1 STRIP Insulin Human Regular ACHS SC 12/28/24 11:30 12/30/24 06:46 2 UNITS Dextrose 50 ml UD PRN IV 12/28/24 08:15 Losartan Potassium 100 mg DAILY PO 12/28/24 10:00 12/30/24 10:25 100 MG Lorazepam 1 mg ONCE PRN IV 12/28/24 22:00 Atorvastatin Calcium 20 mg HS PO 12/29/24 22:00 12/29/24 21:34 20 MG Patient Own Medication 1 Q8HPRN PRN PO 12/29/24 19:30 UNV Laboratory Results Laboratory Tests 12/29/24 05:56 Urinalysis Test 12/28/24 07:44 Urine Color Light-yellow (Yellow) Urine Clarity Clear (Clear) Urine pH 6.0 (5.0-9.0) Urine Specific [place] 1.009 (1.001-1.035) Urine Protein Negative (Negative) Urine Ketones Negative (Negative) Urine Blood Negative /uL (Negative) Urine Nitrite Negative (Negative) Urine Bilirubin Negative (Negative) Urine Urobilinogen Normal mg/dL (Negative) Urine Leukocyte Esterase 2+ /uL (Negative) Urine RBC 1 /hpf (0 - 4) Urine Microscopic WBC 11 /HPF (0-5) H Urine Squamous Epithelial Cells Few /hpf (<5) Urine Bacteria None seen /hpf (None Seen) Urine Glucose Normal mg/dL (Normal) Assessment/Plan Assessment/Plan Cheryl Alvarado, is a 59-year-old female with past medical history of hypertension, hyperlipidemia, and diabetes who came to the hospital after a syncopal episode. Patient states she woke up early this morning to go to the bathroom. While walking to the bathroom she began to feel dizzy, hot, nauseated, and then had a syncopal episode. When she came around she called for her spouse, he came to her in the bathroom, and then she had another syncopal episode. She states she has never had anything like this before. HTN hyperlipidemia Syncope and collapse, Hypertension, Diabetes, Hyperlipidemia, 12/29/2024 Admit to Tele, Neurology consult, Consider cardiology consult, ECHO, Carotid duplex, Continuous telemetry monitoring, Home medications reconciled, Plan discussed with: Patient My Orders Orders - ASTRID WILKS DO Procedure Category Date Status Time Patients Own PHA 12/29/24 Pending Medication 19:30 Date of Service: Dec 29, 2024 Billing Provider: ASTRID WILKS DO Common Visit Codes: [id number] INP/OBS CARE(HIGH) ASTRID WILKS DO Dec 30, 2024 11:52
--- NOTE | 2024-12-30 11:53 | DVHPN2 ---
Reviewed: Care Plan, H&P, Labs, Medications, Previous Orders, Radiology Changes from previous H/P or p: No Changes General: Per HPI Eyes: No Pain, No Vision change, No Conjunctivae inflammation, No Eyelid inflammation, No Other, No Redness ENT: No Ear pain, No Ear discharge, No Nose pain, No Nose discharge, No Nose congestion, No Mouth pain, No Mouth swelling, No Throat pain, No Throat swelling, No Other Cardiovascular: No Chest Pain, No Palpitations, No Orthopnea, No Paroxysmal Noc. Dyspnea, No Edema, No Lt Headedness, No Other Respiratory: No Cough, No Dry, No Shortness of breath, No SOB with excertion, No Wheezing, No Hemoptysis, No Pleuritic Pain, No Sputum, No Other Gastrointestinal: No Nausea, No Vomiting, No Abdominal Pain, No Diarrhea, No Constipation, No Melena, No Hematochezia, No Other Genitourinary: No Dysuria, No Frequency, No Incontinence, No Hematuria, No Retention, No Other Musculoskeletal: No other, No neck pain, No shoulder pain, No arm pain, No back pain, No hand pain, No leg pain, No foot pain Skin: No Rash, No Lesions, No Jaundice, No Bruising, No Other Objective Vitals Vital Signs Date Time Temp Pulse Resp B/P (MAP) Pulse Ox O2 Delivery O2 Flow Rate FiO2 12/30/24 10:25 133/93 12/30/24 08:54 96.5 59 18 94 96.5 66 72 12/29/24 20:00 Nasal Cannula* 2 28 Intake/Output Intake and Output 12/30/24 07:00 Intake Total 1340 ml Balance 1340 ml Intake Oral 1340 ml # Voids 5 General Appearance: Alert, Oriented X3, Cooperative Cardiovascular: Regular rate, Normal S1 Medications Current Medications Medications Dose Ordered Sig/Xiomara Route Start Time Stop Time Status Last Admin Dose Admin Acetaminophen/ Hydrocodone Bitart 1 tab Q4HP PRN PO 12/28/24 08:15 Ondansetron HCl 4 mg Q4HP PRN IV 12/28/24 08:15 Docusate Sodium 100 mg BIDPRN PRN PO 12/28/24 08:15 Acetaminophen 650 mg Q6HP PRN PO 12/28/24 08:15 12/29/24 10:27 650 MG Nitroglycerin 0.4 mg Q5MINP PRN SL 12/28/24 08:15 Morphine Sulfate 2 mg Q30M PRN IV 12/28/24 08:15 Diagnostic Test (Pha) 1 strip ACHS 12/28/24 11:30 12/30/24 11:30 1 STRIP Insulin Human Regular ACHS SC 12/28/24 11:30 12/30/24 06:46 2 UNITS Dextrose 50 ml UD PRN IV 12/28/24 08:15 Losartan Potassium 100 mg DAILY PO 12/28/24 10:00 12/30/24 10:25 100 MG Lorazepam 1 mg ONCE PRN IV 12/28/24 22:00 Atorvastatin Calcium 20 mg HS PO 12/29/24 22:00 12/29/24 21:34 20 MG Patient Own Medication 1 Q8HPRN PRN PO 12/29/24 19:30 UNV Laboratory Results Laboratory Tests 12/29/24 05:56 Urinalysis Test 12/28/24 07:44 Urine Color Light-yellow (Yellow) Urine Clarity Clear (Clear) Urine pH 6.0 (5.0-9.0) Urine Specific [place] 1.009 (1.001-1.035) Urine Protein Negative (Negative) Urine Ketones Negative (Negative) Urine Blood Negative /uL (Negative) Urine Nitrite Negative (Negative) Urine Bilirubin Negative (Negative) Urine Urobilinogen Normal mg/dL (Negative) Urine Leukocyte Esterase 2+ /uL (Negative) Urine RBC 1 /hpf (0 - 4) Urine Microscopic WBC 11 /HPF (0-5) H Urine Squamous Epithelial Cells Few /hpf (<5) Urine Bacteria None seen /hpf (None Seen) Urine Glucose Normal mg/dL (Normal) Labs and/or images reviewed: Labs reviewed by me, Image(s) reviewed by me Assessment/Plan Assessment/Plan Cheryl Alvarado, is a 59-year-old female with past medical history of hypertension, hyperlipidemia, and diabetes who came to the hospital after a syncopal episode. Patient states she woke up early this morning to go to the bathroom. While walking to the bathroom she began to feel dizzy, hot, nauseated, and then had a syncopal episode. When she came around she called for her spouse, he came to her in the bathroom, and then she had another syncopal episode. She states she has never had anything like this before. HTN hyperlipidemia Syncope and collapse, Hypertension, Diabetes, Hyperlipidemia, 12/29/2024 Admit to Tele, Neurology consult, Consider cardiology consult, ECHO, Carotid duplex, Continuous telemetry monitoring, Home medications reconciled, 12/30/2024 pending cardiology consult Plan discussed with: Patient My Orders Orders - ASTRID WILKS DO Procedure Category Date Status Time Patients Own PHA 12/29/24 Pending Medication 19:30 Date of Service: Dec 30, 2024 Billing Provider: ZACK WILKS [employer] Common Visit Codes: [id number] INP/OBS CARE(HIGH) ASTRID WILKS DO Dec 30, 2024 11:53
--- NOTE | 2024-12-30 15:38 | DVHPN2 ---
Consult Progress Note Subjective Other Systems: Patient in normal sinus rhythm on awake overnight monitor Sinus bradycardia events without any significant pauses or atrioventricular blocks noted Objective vital signs Vital Sign Date Time Temp Pulse Resp B/P (MAP) Pulse Ox O2 Delivery O2 Flow Rate FiO2 12/30/24 12:59 96.7 71 20 138/91 (107) 94 96.7 12/29/24 20:00 Nasal Cannula* 2 28 Total Intake and Output 12/29/24 12/29/24 12/30/24 15:00 23:00 07:00 Intake Total 840 ml 500 ml Balance 840 ml 500 ml medications Current Medications Medications Dose Ordered Sig/Xiomara Route Start Time Stop Time Status Last Admin Dose Admin Acetaminophen/ Hydrocodone Bitart 1 tab Q4HP PRN PO 12/28/24 08:15 Ondansetron HCl 4 mg Q4HP PRN IV 12/28/24 08:15 Docusate Sodium 100 mg BIDPRN PRN PO 12/28/24 08:15 Acetaminophen 650 mg Q6HP PRN PO 12/28/24 08:15 12/29/24 10:27 650 MG Nitroglycerin 0.4 mg Q5MINP PRN SL 12/28/24 08:15 Morphine Sulfate 2 mg Q30M PRN IV 12/28/24 08:15 Diagnostic Test (Pha) 1 strip ACHS 12/28/24 11:30 12/30/24 11:30 1 STRIP Insulin Human Regular ACHS SC 12/28/24 11:30 12/30/24 06:46 2 UNITS Dextrose 50 ml UD PRN IV 12/28/24 08:15 Losartan Potassium 100 mg DAILY PO 12/28/24 10:00 12/30/24 10:25 100 MG Lorazepam 1 mg ONCE PRN IV 12/28/24 22:00 Atorvastatin Calcium 20 mg HS PO 12/29/24 22:00 12/29/24 21:34 20 MG Patient Own Medication 1 Q8HPRN PRN PO 12/29/24 19:30 UNV Examination: GENERAL:Normal, LUNGS:Normal, CVS:Normal, NEURO:Normal laboratory and microbiology Laboratory Tests 12/29/24 05:56 Test 12/29/24 05:56 Range/Units Serum Glucose 141 H 74-106 mg/dL Problem List/Assessment/Plan Problem List/Assessment/Plan Syncope, rule out cardiac etiology Hypertension Dyslipidemia Type 2 diabetes mellitus Plan/Recommendation (Dr. Rae): * Transthoracic echocardiogram to evaluate cardiac function * Bilateral carotid ultrasound: Shows no sonographic evidence of carotid artery stenosis * Orthostatic vital signs * Continue lipid-lowering agents * Close Cardiac surveillance: Notify cardiology team immediately for any ECG changes or arrhythmias * UDS In the setting of an unremarkable transthoracic echocardiogram there is no further inpatient cardiac workup indicated at this time. Consider outpatient event monitor if deemed necessary. Thank you for allowing us to care for this patient. Please call with any questions or concerns. This medical document was created using an electronic medical record system with voice recognition software and computerized dictation system. Although this document has been carefully reviewed, there might still be some phonetic and typographical errors. Occasional wrong-word or ``sound-alike substitutions may have occurred due to the inherent limitations of voice recognition software. These areas are purely typographical due to imperfections of the software programs and do not reflect any compromise in the patient's medical care. Please read the chart carefully and recognize, using context, where these substitutions have occurred. Plan discussed with: Patient Date of Service: Dec 30, 2024 Billing Provider: ISELA LOCKWOOD Common Visit Codes: [id number] INP/OBS CARE(HIGH) ISELA LOCKWOOD Dec 30, 2024 15:38
[2024-12-31 01:00] VITALS: BP 103/66; PULSE 68; RESP 17; TEMP 97.4; O2SAT 96
[2024-12-31 05:00] VITALS: BP_SYST 123; BP_SYST 130; BP_SYST 132; BP_DIAS 65; BP_DIAS 89; BP_DIAS 91; PULSE 66; PULSE 75; PULSE 84; RESP 18; TEMP 97.6; O2SAT 94
[2024-12-31 08:05] VITALS: PULSE 63; RESP 17; O2SAT 95
[2024-12-31 08:30] VITALS: BP 113/76; PULSE 63; PULSE 76; RESP 17; TEMP 98; O2SAT 95
--- NOTE | 2024-12-31 12:06 | DVHDS2 ---
Discharge Summary Date of Admission Dec 28, 2024 at 08:08 Date of Discharge: Dec 31, 2024 Labs/Diagnostic Data: Laboratory Results Test 12/31/24 11:52 12/29/24 05:56 12/28/24 07:44 12/28/24 06:01 White Blood Count 4.9 10^3/uL (4.4-10.8) Red Blood Count 4.32 10^6/uL (4.0-5.20) Hemoglobin 13.7 g/dL (12.2-16.2) Hematocrit 39.8 % (36.0-46.0) Mean Corpuscular Volume 92.2 fL (80.0-100.0) Mean Corpuscular Hemoglobin 31.7 pg (28.0-32.0) Mean Corpuscular Hemoglobin Concent 34.4 g/dL (32.0-36.0) Red Cell Distribution Width 12.6 % (11.8-14.3) Platelet Count 227 10^3/uL (140-450) Mean Platelet Volume 8.9 fL (6.9-10.8) Neutrophils (%) (Auto) 53.9 % (37.0-80.0) Lymphocytes (%) (Auto) 36.2 % (10.0-50.0) Monocytes (%) (Auto) 6.9 % (0.0-12.0) Eosinophils (%) (Auto) 2.4 % (0.0-7.0) Basophils (%) (Auto) 0.6 % (0.0-2.0) Neutrophils # (Auto) 2.6 10 ^3/uL (1.6-8.6) Lymphocytes # (Auto) 1.8 10 ^3/uL (0.4-5.4) Monocytes # (Auto) 0.3 10 ^3/uL (0-1.3) Eosinophils # (Auto) 0.1 10 ^3/uL (0-0.8) Basophils # (Auto) 0 10 ^3/uL (0-0.2) Nucleated Red Blood Cells 0.2 % Sodium Level 140 mmol/L (136-145) Potassium Level 3.9 mmol/L (3.5-5.1) Chloride Level 106 mmol/L (98-107) Carbon Dioxide Level 23 mmol/L (20-31) Anion Gap 11 (5-15) Blood Urea Nitrogen 10 mg/dL (9-23) Creatinine 0.69 mg/dL (0.550-1.02) Glomerular Filtration Rate Calc 101 mL/min (>90) BUN/Creatinine Ratio 14.5 (10.0-20.0) Serum Glucose 141 mg/dL (74-106) Hemoglobin A1c 6.3 % A1C (<5.7) Calcium Level 10.0 mg/dL (8.7-10.4) Magnesium Level 2.0 mg/dL (1.6-2.6) Total Bilirubin 0.7 mg/dL (0.2-1.0) Aspartate Amino Transferase (AST) 43 U/L (<34) Alanine Aminotransferase (ALT) 56 U/L (7-40) Alkaline Phosphatase 62 U/L (46-116) Total Protein 6.9 g/dL (5.7-8.2) Albumin 4.5 g/dL (3.2-4.8) Triglycerides Level 140 mg/dL (< 150) Cholesterol Level 210 mg/dL (< 200) LDL Cholesterol 139 mg/dL (< 100) HDL Cholesterol 63 mg/dL (40-59) Thyroid Stimulating Hormone (TSH) 1.36 uIU/mL (0.55-4.78) Urine Color Light-yellow (Yellow) Urine Clarity Clear (Clear) Urine pH 6.0 (5.0-9.0) Urine Specific [place] 1.009 (1.001-1.035) Urine Protein Negative (Negative) Urine Ketones Negative (Negative) Urine Blood Negative /uL (Negative) Urine Nitrite Negative (Negative) Urine Bilirubin Negative (Negative) Urine Urobilinogen Normal mg/dL (Negative) Urine Leukocyte Esterase 2+ /uL (Negative) Urine RBC 1 /hpf (0 - 4) Urine Microscopic WBC 11 /HPF (0-5) Urine Squamous Epithelial Cells Few /hpf (<5) Urine Bacteria None seen /hpf (None Seen) Urine Glucose Normal mg/dL (Normal) Troponin I High Sensitivity < 3 ng/L (</=34) Other Laboratory Tests 12/29/24 05:56 Brief Hx & Hospital Course: Cheryl Alvarado, is a 59-year-old female with past medical history of hypertension, hyperlipidemia, and diabetes who came to the hospital after a syncopal episode. Patient states she woke up early this morning to go to the bathroom. While walking to the bathroom she began to feel dizzy, hot, nauseated, and then had a syncopal episode. When she came around she called for her spouse, he came to her in the bathroom, and then she had another syncopal episode. She states she has never had anything like this before. HTN hyperlipidemia Syncope and collapse, Hypertension, Diabetes, Hyperlipidemia, 12/29/2024 Admit to Tele, Neurology consult, Consider cardiology consult, ECHO, Carotid duplex, Continuous telemetry monitoring, Home medications reconciled, 12/30/2024 pending cardiology consult 12/31/2024 discharged to home Condition at Discharge: Fair Final Diagnosis/Problems List see above Discharge Disposition: Home Discharge Instruct/Medications Diet: Cardiac 2g Na,low cholest Activity: No Restrictions, As Tolerated Discharge Statement: "Patient was advised to return to the ER or call 911 if any headaches, dizziness, shortness of breath, chest pain, abdominal pain, bleeding, fevers, or worsening of medical condition. Patient was counseled about treatment plan, medications, possible side effects, patientverbalized understanding. All questions were answered to the best of my ability. This discharge took greater then 30 minutes in planning, reviewing documentation, counseling the patient, and discussing with other team members." ASSESSMENT ASSESSMENT Assessment Date of Service: Dec 31, 2024 Billing Provider: ASTRID WILKS DO Common Visit Codes: [id number] DISCH DAY >30min ASTRID WILKS DO Dec 31, 2024 12:06
[2024-12-31 12:30] VITALS: BP_SYST 130; BP_SYST 136; BP_SYST 137; BP_DIAS 72; BP_DIAS 75; BP_DIAS 77; PULSE 69; PULSE 74; PULSE 77; RESP 17; RESP 18; TEMP 98.3; O2SAT 96; O2SAT 98
[2024-12-31 12:42] VITALS: BP 136/75; PULSE 69; RESP 17; TEMP 98.3; O2SAT 96
--- NOTE | 2025-01-01 00:03 | DVHSR ---
APPROVED REPORT EXAM: Two-dimensional and M-mode echocardiogram with Doppler and color Doppler. Blood Pressure: 142/77 mmHg INDICATION Syncope RISK FACTORS Height: 5'4", Weight: 220 DIMENSIONS LVDd4.3 (3.8-5.7cm)LA (2D)3.5 (1.9-4.0cm)Aortic Root3.4 (2.0-3.7cm) LVDs3.0 (2.5-4.0cm)LA (MM) (1.9-4.0cm)Aortic Cusp Exc1.6 (1.5-2.0cm) EF (%) 60.0 (55-70%)Rt. Atrium3.4 (1.9-4.0cm)Asc. Aorta3.7 cm IVSd1.2 (0.7-1.1cm)RV (D) (1.8-2.4cm) PWd1.1 (0.7-1.1cm) Mitral Valve MitralMitral Stenosis E wave0.59m/sMV Mean GR.mmHg A wave0.82m/sMV Peak GR.mmHg E/A ratio0.72D MVAcm2 DECEL [id number] 1/2 Timems Aortic Valve Aortic ValveAortic Stenosis V11.27m/Nina Mean GR.5mmHg V21.50m/Nina Peak GR.9mmHg LVOT Diameter1.8 (1.8-2.4cm)Doppler AVA2.15cm2 AI P 1/2 [id number] Pulmonic Valve V20.83m/s Tricuspid Valve TR Velocity2.36m/s [id number] Other Information Quality : Technically LimitedRhythm : Technically limited study due to body habitus. Conclusion NORMAL LV EF AND IS 65% MODERATELY CALCIFIED AORTIC LEAFLETS NO EVIDENCE OF AORTIC STENOSIS MODERATE DEGREE AORTIC REGURGITATION NORMAL MV,TV AND PV NO EFFUSION NORMAL RV FUNCTION
== END 2024-12-31 14:25 | disposition home or self-care (01) | DRG 200 ==
LOC: EDBD 04:05 → ER 04:05 → OVERFLOW 08:08 → TELE-WESTW 22:14
PROVIDERS: ADMIT Internal Medicine; ATTEND Internal Medicine
DX: I35.1 Nonrheumatic aortic (valve) insufficiency (principal); J96.01 Acute respiratory failure with hypoxia; E11.9 Type 2 diabetes mellitus without complications; E78.5 Hyperlipidemia, unspecified; I10 Essential (primary) hypertension; Z79.899 Other long term (current) drug therapy; Z79.84 Long term (current) use of oral hypoglycemic drugs; Z90.710 Acquired absence of both cervix and uterus
CPT/HCPCS: 36415; 70450; 70551; 71045; 80048; 80053; 80061; 81001; 82962; 83036; 83735; 84443; 84484; 85025; 93005; 93306; 93886; 95819; 96372; 99291; G0378; J1815

== ENCOUNTER 2025-01-27 07:14 | Emergency (ER) | payer OTHER ==
[~2025-01-27] VITALS: Ht 162.6 cm; Wt 79.4 kg
[~2025-01-27 07:14] MED LIST: ATOR10TA52 PO; LOSA-535 PO; METF-370 PO
[2025-01-27] MEDS ORDERED: AUG875T PO (07:43)
[2025-01-27] MEDS ORDERED: IBUP-1454 PO (07:43)
--- NOTE | 2025-01-27 07:48 | ED.PDOC ---
Eye-HPI HPI Comments A 59 YEAR OLD FEMALE PRESENTS TO THE ED WITH COMPLAINT OF LEFT EAR PAIN. PATIENT STATES SHE HAS BEEN EXPERIENCING LEFT EAR PAIN FOR THE PAST 2 DAYS. PATIENT DENIES FEVER, CHILLS, SHORTNESS OF BREATH, CHEST PAIN, ABDOMINAL PAIN, NAUSEA, VOMITING, HEADACHE, OR OTHER COMPLAINTS. NO OTHER SYMPTOMS OR MODIFYING FACTORS AT THIS TIME. PATIENT IS ALERT, ORIENTED X 4, AND HAS STEADY GAIT. Chief Complaint: Earache Time Seen by MD: 07:40 Reviewed Notes: Nurses Notes, Medications, Allergies Allergies: Coded Allergies: No Known Drug Allergy (Verified Allergy, Unknown, 12/28/24) Home Meds Active Scripts Ibuprofen (Ibuprofen) 600 Mg Tab, 1 TAB PO TID, #30 TAB Prov:POLO BOLDEN 01/27/25 Amoxicillin & Pot Clavulanate (AUGMENTIN TABLET) 875 Mg Tb, 875 MG PO BID, #20 TAB Prov:POLO BOLDEN 01/27/25 Reported Medications Losartan Potassium (Losartan Potassium) 100 Mg Tab, 1 TAB PO DAILY 12/28/24 Atorvastatin Calcium (ATORVASTATIN CALCIUM) 10 Mg Tab, 1 TAB PO HS 12/28/24 Metformin Hydrochloride (Metformin Hcl) 500 Mg Tab, 1 TAB PO DAILY 12/28/24 Information Source: Patient Mode of Arrival: Ambulatory Timing: Days Duration: Since onset, Days Prehospital treatment: None Quality: Pain, Red Lids: Normal Conjunctiva: Normal Cornea: Normal Pupils: Normal EOM: Normal Fundus: Normal Slit lamp exam: Normal Mouth: Normal ENT Ear Exam: Normal, Red, Bulging, Dull, Normal Nose: Normal Sinuses: Normal Oropharynx: Normal Onset: Spontaneous Throat Exposed to: None History of: None Last Tetanus: Unknown Modifying factors: Nothing Associated signs and symptoms: Ear Pain Past Medical History PAST MEDICAL HISTORY: Denies Surgical History: Denies all surgeries DISTRICT RANGER History: No Pertinent DISTRICT RANGER History Family History Family History: Reviewed,noncontributory to illness, No family hx of Cancer, No family hx of DM, No family hx of Heart yosef, No family hx of HTN, No family hx ofKidney yosef, No family hx of Liver yosef, No family hx of Lung yosef, No family hx of Stroke Social History Smoker: Non-Smoker Alcohol: Denies ETOH Use Drugs: Denies Drug Use Lives In: Home Constitutional: denies: chills, diaphoresis, fatigue, fever, malaise, sweats, weakness, others EENTM: reports: ear pain, ear ringing; denies: blurred vision, double vision, ear bleeding, ear discharge, ear drainage, eye pain, eye redness, hearing loss, mouth pain, mouth swelling, nasal discharge, nose bleeding, nose congestion, nose pain, photophobia, tearing, throat pain, throat swelling, voice changes, others Respiratory: denies: cough, hemoptysis, orthopnea, SOB at rest, shortness of breath, SOB with excertion, stridor, wheezing, others Cardiovascular: denies: chest pain, dizzy spells, diaphoresis, Dyspnea on exertion, edema, irregular heart beat, left arm pain, lightheadedness, palpitations, PND, syncope, others Gastrointestinal: denies: abdomen distended, abdominal pain, blood streaked bowels, constipated, diarrhea, dysphagia, difficulty swallowing, hematemesis, melena, nausea, poor appetite, poor fluid intake, rectal bleeding, rectal pain, vomiting, others Genitourinary: denies: abnormal vagina bleeding, burning, dyspareunia, dysuria, flank pain, frequency, hematuria, incontinence, pain, , vagina discharge, urgency, others Neurological: denies: dizziness, fainting, headache, left sided numbness, left sided weakness, numbness, paresthesia, pre-existing deficit, right sided numbness, right sided weakness, seizure, speech problems, tingling, tremors, we akness, others Musculoskeletal: denies: back pain, gout, joint pain, joint swelling, muscle pain, muscle stiffness, neck pain, others Integumetry: denies: bruises, change in color, change in hair/nails, dryness, laceration, lesions, lumps, rash, wounds, others Allergic/Immunocompromised: denies: Difficulty Healing, Frequent Infections, Hives, Itching, others Hematologic/Lymphatic: denies: anemia, blood clots, easy bleeding, easy bruising, swollen glands, others Endocrine: denies: excessive hunger, excessive sweating, excessive thirst, excessive urination, flushing, intolerance to cold, intolerance to heat, unexplained weight gain, unexplained weight loss, others Psychiatric: denies: anxiety, bipolar disorder, depression, hopeless, panic disorder, schizophrenia, sleepless, suicidal, others All Other Systems: Reviewed and Negative Physical Exam General Appearance: No Apparent Distress, Normal HEENT: PERRL/EOMI, Pharynx Normal, TM Abnormal (R) (ERYTHEMA AND DULL WITH EFFUSION OF RIGHT TM, NO BLEEDING AND FB. ) Neck: Full Range of Motion, Non-Tender, Normal, Normal Inspection Respiratory: Chest Non-Tender, Lungs Clear, No Accessory Muscle Use, No Respiratory Distress, Normal Breath Sounds Cardiovascular: No Edema, No JVD, No Murmur, No Gallop, Normal Peripheral Pulses, Regular Rate/Rhythm Breast Exam: Deferred Gastrointestinal: No Organomegaly, Non Tender, No Pulsatile Mass, Normal Bowel Sounds, Soft Genitalia: Deferred Pelvic: Deferred Rectal: Deferred Extremities: No calf tenderness, Normal capillary refill, Normal inspection, Normal range of motion, Non-tender, No pedal edema Musculoskeletal : Apperance: Normal Neurologic: Alert, turfgrass technician II-XII nml as Tested, No Motor Deficits, Normal Affect, Normal Mood, No Sensory Deficits Cerebellar Function: Normal Reflexes: Normal Skin: Dry, Normal Color, Warm Peripheral Pulses: 2+ carotid (R), 2+ carotid (L) Lymphatic: No Adenopathy Was a procedure done? Was a procedure done?: No EENT DIFF Eye: N/A Ear: Cerumen Impaction, Otitis Externa, Otitis Media, Dental, Pharyngitis, Sinusitis Nose: N/A Mouth: N/A Sore Throat: N/A X-Ray, Labs, Meds, VS Vital Signs Date Time Temp Pulse Resp B/P (MAP) Pulse Ox O2 Delivery O2 Flow Rate FiO2 /25/25 07:41 98.2 97 16 157/92 (113) 98 98.2 X-Ray, Labs, Meds, VS Comment EXTERNAL MEDICAL RECORDS REVIEWED: [NONE] INDEPENDENT HISTORIANS: [NONE] SOCIAL DETERMINANTS OF HEALTH: [NONE] LABS ORDERED: NONE REVIEWED AND INTERPRETED RESULTS: NONE IMAGING ORDERED: NONE TREATMENTS ORDERED: NONE PROCEDURES PERFORMED: NONE CRITICAL CARE TIME: NONE I HAVE DISCUSSED THE PATIENT WITH THE ATTENDING PHYSICIAN DR. MILLER AND HE AGREES WITH THE PATIENT'S PLAN OF CARE AND DISPOSITION. BASED ON HISTORY OF PRESENT ILLNESS, AND PHYSICAL EXAM, PATIENT WILL BE DISCHARGED HOME. DISCUSSED PLAN FOR DISCHARGE HOME WITH RX [AMOXICILLIN AND MOTRIN 800 MG]. MEDICATION WARNINGS GIVEN. SHARED DECISION MAKING: PATIENT INSTRUCTED TO FOLLOW UP WITH PRIMARY CARE PROVIDER IN 1-2 DAYS FOR RE-EVALUATION OF SYMPTOMS. PATIENT VERBALIZES UNDERSTANDING TO RETURN TO ED FOR NEW OR WORSENING SYMPTOMS OR IF FOLLOW UP WITH PCP CANNOT BE OBTAINED. PATIENT FEELS COMFORTABLE GOING HOME AT THIS TIME. ALL QUESTIONS ADDRESSED AT TIME OF DISCHARGE. Time of 1ST Reevaluation: 08:00 Reevaluation 1ST: Improved Patient Education/Counseling: Diagnosis, Treatment, Need For Follow Up Family Education/Counseling: Diagnosis, Treatment, Need For Follow Up Medical Screening: No EMC Exist At This Time SEPSIS Sepsis Screen Vital Signs Date Time Temp Pulse Resp B/P (MAP) Pulse Ox O2 Delivery O2 Flow Rate FiO2 01/27/25 07:41 98.2 97 16 157/92 (113) 98 98.2 Departure 1 Departure Time of Disposition: 08:00 Impression: Primary Impression: Otitis media of left ear Qualified Codes: H65.02 - Acute serous otitis media, left ear Disposition: HOME / SELF CARE / HOMELESS Condition: Stable Additional Instructions: FOLLOW-UP WITH PCP IN 1 TO 2 DAYS. TAKE MEDICATIONS PRESCRIBED. RETURN TO ED FOR ANY NEW OR WORSENING SYMPTOMS. e-Prescriptions Ibuprofen (Ibuprofen) 600 Mg Tab 1 TAB PO TID, #30 TAB Prov: POLO BOLDEN 01/27/25 Amoxicillin & Pot Clavulanate (AUGMENTIN TABLET) 875 Mg Tb 875 MG PO BID, #20 TAB Prov: POLO BOLDEN 01/27/25 Discharged With: Self Critical Care Note Critical Care Time?: No Stability Stability form required: No I personally scribed for POLO BOLDEN ([email or web address]) on 01/27/25 at 07:48. Electronically submitted by Camilo Del Valle ([email or web address]). POLO BOLDEN Jan 27, 2025 07:48
[2025-01-27 08:04] VITALS: BP 157/92; PULSE 97; RESP 16; TEMP 98.2; O2SAT 98
== END 2025-01-27 08:09 | disposition home or self-care (01) ==
LOC: ER 07:21
DX: H66.92 Otitis media, unspecified, left ear (principal); Z79.899 Other long term (current) drug therapy; Z79.84 Long term (current) use of oral hypoglycemic drugs; Z79.1 Long term (current) use of non-steroidal anti-inflammatories (NSAID)

== ENCOUNTER 2025-03-04 04:29 | Emergency (ER) | payer OTHER ==
[~2025-03-04] VITALS: Ht 162.6 cm; Wt 79.0 kg
[~2025-03-04 04:29] MED LIST changes: +AUG875T PO; +IBUP-1454 PO
--- NOTE | 2025-03-04 04:37 | ED.PDOC ---
Eye-HPI HPI Comments PT CAMME TO THE ER WITH CC OF EAR INFECTION, PT STATES THAT SHE WAS SEEN HERE A MONTH AGO AND DIAGNOSED WITH AN EAR INFECTION, PT COMPLETED ALL ANTIBIOTIC AND SYMPTOMS STILL HAVE NOT RESOLVED. PT IS A&OX4, RR EVEN AND REGULAR NO DISTRESS NOTED AT THIS TIME. PT DENIES N/V/D CP SOB Chief Complaint: Earache Time Seen by MD: 04:33 Reviewed Notes: Nurses Notes, Medications, Allergies Allergies: Coded Allergies: No Known Drug Allergy (Verified Allergy, Unknown, 12/28/24) Home Meds Active Scripts Prednisone (Prednisone) 20 Mg Tab, 20 MG PO DAILY@BREAKFAST for 3 Days, #3 TAB Prov:CELI HALL 03/04/25 Azithromycin (Azithromycin) 500 Mg Tab, 1 TAB PO DAILY for 5 Days, #5 TAB Prov:CELI HALL 03/04/25 Ibuprofen (Ibuprofen) 600 Mg Tab, 1 TAB PO TID, #30 TAB Prov:POLO BOLEDN 01/27/25 Amoxicillin & Pot Clavulanate (AUGMENTIN TABLET) 875 Mg Tb, 875 MG PO BID, #20 TAB Prov:POLO BOLDEN 01/27/25 Reported Medications Losartan Potassium (Losartan Potassium) 100 Mg Tab, 1 TAB PO DAILY 12/28/24 Atorvastatin Calcium (ATORVASTATIN CALCIUM) 10 Mg Tab, 1 TAB PO HS 12/28/24 Metformin Hydrochloride (Metformin Hcl) 500 Mg Tab, 1 TAB PO DAILY 12/28/24 Information Source: Patient Past Medical History PAST MEDICAL HISTORY: Denies Surgical History: Denies all surgeries GARDENER FLORIST History: No Pertinent GARDENER FLORIST History Family History Family History: Reviewed,noncontributory to illness, No family hx of Cancer, No family hx of DM, No family hx of Heart yosef, No family hx of HTN, No family hx ofKidney yosef, No family hx of Liver yosef, No family hx of Lung oysef, No family hx of Stroke Social History Smoker: Non-Smoker Alcohol: Denies ETOH Use Drugs: Denies Drug Use Lives In: Home All Other Systems: Reviewed and Negative (SEE HPI ) Physical Exam General Appearance: No Apparent Distress, Normal HEENT: Pharynx Normal, TM Abnormal (L) (YELLOWISH DRAINAGE TM TRACE ERYTHEMA MINIMAL BULGING CANAL CLEAR) Neck: Full Range of Motion, Non-Tender, Normal, Normal Inspection Respiratory: Chest Non-Tender, Lungs Clear, No Accessory Muscle Use, No Respiratory Distress, Normal Breath Sounds Cardiovascular: No Edema, No JVD, No Murmur, No Gallop, Normal Peripheral Pulses, Regular Rate/Rhythm Breast Exam: Deferred Gastrointestinal: No Organomegaly, Non Tender, No Pulsatile Mass, Normal Bowel Sounds, Soft Genitalia: Deferred Pelvic: Deferred Rectal: Deferred Extremities: Normal capillary refill, Normal range of motion Musculoskeletal : Apperance: Normal Neurologic: Alert, No Motor Deficits, Normal Affect, Normal Mood, No Sensory Deficits Cerebellar Function: Normal Reflexes: NOT DONE Skin: Dry, Normal Color, Warm Lymphatic: No Adenopathy Was a procedure done? Was a procedure done?: No EENT DIFF Eye: N/A Ear: Cerumen Impaction, Foreign Body, Otitis Externa, Barotrauma, Otitis Media, Perforation, Dental, Pharyngitis X-Ray, Labs, Meds, VS Vital Signs Date Time Temp Pulse Resp B/P (MAP) Pulse Ox O2 Delivery O2 Flow Rate FiO2 03/04/25 04:33 97.7 83 19 145/96 92 97.7 X-Ray, Labs, Meds, VS Comment PATIENT HAS A SCHEDULE AN APPOINTMENT WITH ENT IN TWO WEEKS. LIKELY RESISTANT TO THE AUGMENTIN SCRIPT TRIAL OF AZITHROMYCIN 500 MG ONCE DAILY X5 DAYS ALONG WITH PREDNISONE X3 DAYS. PATIENT GIVEN DECADRON 10 MG IM AND ROCEPHIN 1 G IM IN CLINIC TODAY. ADVISED TO AVOID UNDER WATER ACTIVITY WHILE WITH INFECTION. [id number] TYLENOL OR MOTRIN NEEDED FOR THE PAIN OR FEVER PER LABELED DOSING INSTRUCTIONS. ER RETURN PRECAUTIONS GIVEN PATIENT INDICATES UNDERSTANDING AGREES WITH DISCHARGE PLAN OF CARE. Time of 1ST Reevaluation: 04:45 Reevaluation 1ST: Unchanged Time of 2ND Reevaluation: 05:30 Reevaluation 2ND: Improved Patient Education/Counseling: Diagnosis, Treatment, Prognosis, Need For Follow Up Family Education/Counseling: Diagnosis, Treatment, Prognosis SEPSIS Sepsis Screen Physician Orders Ceftriaxone Sodium (Rocephin) (03/04/25 05:30) Dexamethasone Injection (Decadron Inject (03/04/25 05:30) Vital Signs Date Time Temp Pulse Resp B/P (MAP) Pulse Ox O2 Delivery O2 Flow Rate FiO2 03/04/25 04:33 97.7 83 19 145/96 92 97.7 Departure 1 Departure Time of Disposition: 05:29 Impression: Primary Impression: Otitis media of left ear Qualified Codes: H66.92 - Otitis media, unspecified, left ear Disposition: 01 HOME / SELF CARE / HOMELESS Condition: Stable e-Prescriptions Prednisone (Prednisone) 20 Mg Tab 20 MG PO DAILY@BREAKFAST for 3 Days, #3 TAB Prov: CELI HALL 03/04/25 Azithromycin (Azithromycin) 500 Mg Tab 1 TAB PO DAILY for 5 Days, #5 TAB Prov: CELI HALL 03/04/25 Discharged With: Spouse Critical Care Note Critical Care Time?: No Stability Stability form required: No CELI HALL Mar 04, 2025 04:37
[2025-03-04] MEDS ORDERED: PRED20TA2 PO (05:29)
[2025-03-04] MEDS ORDERED: AZIT500T66 PO (05:29)
[2025-03-04] MEDS: cefTRIAXone SOD 1,000 MG VL IM ONE (05:42)
[2025-03-04 05:53] VITALS: BP 138/64; PULSE 88; RESP 20; TEMP 98.8; O2SAT 96
== END 2025-03-04 05:58 | disposition home or self-care (01) ==
LOC: ER 04:35
DX: H66.92 Otitis media, unspecified, left ear (principal); Z79.899 Other long term (current) drug therapy
CPT/HCPCS: 96372; 99284; J0696; J1100

== ENCOUNTER 2025-04-11 13:47 | Emergency (ER) | payer OTHER ==
[~2025-04-11] VITALS: Ht 160 cm; Wt 77.8 kg
[2025-04-11 13:50] VITALS: BP 145/96; PULSE 96; RESP 18; TEMP 98.6; O2SAT 95
[2025-04-11] MEDS ORDERED: CIPR1SUS8 OT (14:51)
--- NOTE | 2025-04-11 14:52 | ED.PDOC ---
Eye-HPI HPI Comments 59-YEAR-OLD FEMALE PRESENTS TO THE ER WITH A CHIEF COMPLAINT OF EAR PAIN/HEARING LOSS. PATIENT REPORTS ON EXPERIENCING SEVERE EAR PAIN FOR ALMOST A MONTH, WHICH DISRUPTS HER SLEEP. THE PAIN IS DESCRIBED A PANIC SENSATION, SIMILAR TO A HEARTBEAT, RADIATING FROM THE LEFT EAR TO THE RIGHT. THE PATIENT DID SEE THE YEARS SPECIALIST WERE SHE WAS EVALUATED BY THEM AND WAS INFORMED THAT SHE HAS HEARING LOSS. THE EAR CONDITIONING HAS WORSENED OVER TIME AND HAS NOT BEEN ADEQUATELY ADDRESSED YET. THE PATIENT WAS PRESCRIBED EAR DROPS FOR PAIN RELIEF, BUT THESE HAVE NOT BEEN EFFECTIVE. THE PATIENT ALSO BEEN PRESCRIBED ZANTAC AND AFRIN BUT THIS SPECIFIC EFFECTIVENESS ON THOSE MEDICATIONS IS NOT DETAILED. DENIES BLUNT TRAUMA (HAND BLOW TO THE EAR, FALL, DIRECT HIT) DENIES PENETRATING TRAUMA (Q-TIP USE, MATCH-STICK, GUNSHOT WOUND, WELDING SPARK) DENIES EAR TRAUMA DENIES BAROTRAUMA DENIES BLAST INJURY DENIES AIR TRAVEL DENIES SCUBA DIVING DENIES HEARING LOSS DENIES PERSISTENT RINGING IN THE EAR DENIES FEVER CHILLS NIGHT SWEATS UNINTENTIONAL WEIGHT LOSS DENIES NAUSEA VOMITING SEVERE HEADACHE OR RECENT VISION CHANGES Chief Complaint: Earache Time Seen by MD: 15:00 Reviewed Notes: Nurses Notes, Medications, Allergies Allergies: Coded Allergies: No Known Drug Allergy (Verified Allergy, Unknown, 12/28/24) Home Meds Active Scripts Ciprofloxacin-Dexamethasone (Ciprofloxacin/Dexamethaso 0.3-0.1 %) 1 [place], 4 DROP OT BID for 7 Days, #5 ML 0 Refills Prov:ARELI MARCUM LAWNMOWER REPAIR MECHANIC 04/11/25 Ibuprofen (Ibuprofen) 600 Mg Tab, 1 TAB PO TID, #30 TAB Prov:POLO BOLDEN 01/27/25 Amoxicillin & Pot Clavulanate (AUGMENTIN TABLET) 875 Mg Tb, 875 MG PO BID, #20 TAB Prov:POLO BOLDEN 01/27/25 Reported Medications Losartan Potassium (Losartan Potassium) 100 Mg Tab, 1 TAB PO DAILY 12/28/24 Atorvastatin Calcium (ATORVASTATIN CALCIUM) 10 Mg Tab, 1 TAB PO HS 12/28/24 Metformin Hydrochloride (Metformin Hcl) 500 Mg Tab, 1 TAB PO DAILY 12/28/24 Information Source: Patient Mode of Arrival: Ambulatory Timing: Came on: Gradually Duration: Since onset Prehospital treatment: None Quality: Pain Lids: Normal Conjunctiva: Normal Cornea: Normal Pupils: Normal EOM: Normal Fundus: Normal Slit lamp exam: Normal Anterior chamber: Normal Mouth: Normal ENT Ear Exam: Normal Nose: Normal Sinuses: Normal Oropharynx: Normal Onset: Spontaneous Throat Exposed to: None History of: None Associated signs and symptoms: Ear Pain Past Medical History PAST MEDICAL HISTORY: Denies Surgical History: Denies all surgeries PONY RIDE OPERATOR History: No Pertinent PONY RIDE OPERATOR History Family History Family History: Reviewed,noncontributory to illness, Unknown Social History Smoker: Non-Smoker Alcohol: Denies ETOH Use Drugs: Denies Drug Use Lives In: Home Constitutional: denies: chills, diaphoresis, fatigue, fever, malaise, sweats, weakness, others EENTM: reports: ear pain; denies: blurred vision, double vision, ear bleeding, ear discharge, ear drainage, ear ringing, eye pain, eye redness, hearing loss, mouth pain, mouth swelling, nasal discharge, nose bleeding, nose congestion, nose pain, photophobia, tearing, throat pain, throat swelling, voice changes, others Respiratory: denies: cough, hemoptysis, orthopnea, SOB at rest, shortness of breath, SOB with excertion, stridor, wheezing, others Cardiovascular: denies: chest pain, dizzy spells, diaphoresis, Dyspnea on exertion, edema, irregular heart beat, left arm pain, lightheadedness, palpitations, PND, syncope, others Gastrointestinal: denies: abdomen distended, abdominal pain, blood streaked bowels, constipated, diarrhea, dysphagia, difficulty swallowing, hematemesis, melena, nausea, poor appetite, poor fluid intake, rectal bleeding, rectal pain, vomiting, others Genitourinary: denies: abnormal vagina bleeding, burning, dyspareunia, dysuria, flank pain, frequency, hematuria, incontinence, pain, , vagina discharge, urgency, others Neurological: denies: dizziness, fainting, headache, left sided numbness, left sided weakness, numbness, paresthesia, pre-existing deficit, right sided numbness, right sided weakness, seizure, speech problems, tingling, tremors, weakness, others Musculoskeletal: denies: back pain, gout, joint pain, joint swelling, muscle pain, muscle stiffness, neck pain, others Integumetry: denies: bruises, change in color, change in hair/nails, dryness, laceration, lesions, lumps, rash, wounds, others Allergic/Immunocompromised: denies: Difficulty Healing, Frequent Infections, Hives, Itching, others Hematologic/Lymphatic: denies: anemia, blood clots, easy bleeding, easy bruising, swollen glands, others Endocrine: denies: excessive hunger, excessive sweating, excessive thirst, excessive urination, flushing, intolerance to cold, intolerance to heat, u nexplained weight gain, unexplained weight loss, others Psychiatric: denies: anxiety, bipolar disorder, depression, hopeless, panic disorder, schizophrenia, sleepless, suicidal, others All Other Systems: Reviewed and Negative Physical Exam Exam Comments 2 MM TM PERFORATION, NO DRAINAGE, CANALS CLEAR, HEARING IS INTACT, NO SWELLING General Appearance: No Apparent Distress, Normal HEENT: Normal ENT Inspection, Pharynx Normal, TMs Normal Neck: Full Range of Motion, Non-Tender, Normal, Normal Inspection Respiratory: Chest Non-Tender, Lungs Clear, No Accessory Muscle Use, No Respiratory Distress, Normal Breath Sounds Cardiovascular: No Edema, No JVD, No Murmur, No Gallop, Normal Peripheral Pulses, Regular Rate/Rhythm Breast Exam: Deferred Gastrointestinal: No Organomegaly, Non Tender, No Pulsatile Mass, Normal Bowel Sounds, Soft Genitalia: Deferred Pelvic: Deferred Rectal: Deferred Extremities: No calf tenderness, Normal capillary refill, Normal inspection, Normal range of motion, Non-tender, No pedal edema Musculoskeletal : Apperance: Normal Neurologic: Alert, waterfront director II-XII nml as Tested, No Motor Deficits, Normal Affect, Normal Mood, No Sensory Deficits Cerebellar Function: Normal Reflexes: Normal Skin: Dry, Normal Color, Warm Lymphatic: No Adenopathy Was a procedure done? Was a procedure done?: No EENT DIFF Eye: N/A, Other Ear: Other (OTALGIA LEFT EAR) Nose: N/A Mouth: N/A Sore Throat: N/A X-Ray, Labs, Meds, VS Vital Signs Date Time Temp Pulse Resp B/P (MAP) Pulse Ox O2 Delivery O2 Flow Rate FiO2 04/11/25 13:50 98.6 96 18 145/96 95 98.6 X-Ray, Labs, Meds, VS Comment 59-YEAR-OLD FEMALE PRESENTS TO THE ER WITH A CHIEF COMPLAINT OF EAR PAIN/HEARING LOSS. PATIENT ARRIVES ALERT AND ORIENTED, ABC'S INTACT, AFEBRILE, VITAL SIGNS STABLE, SATURATING WELL IN ROOM AIR Patient is stable for discharge at this time. External notes reviewed. Test results and diagnostic imaging interpreted. All diagnostic findings, discharge care, education and instructions provided Follow-up with PCP in 2 to 3 days Patient verbalized understanding and agreed to treatment plan Vital signs stable, afebrile, no acute distress noted Patient ambulatory with strong steady gait Advised to return precautions for any new or worsening symptoms, return to ER immediately for re-evaluation Patient is aware that the purpose of this visit was for an acute medical emergency requiring emergent stabilization. Chronic conditions, including malignancies have not been ruled out. Patient is instructed to follow up with PCP as directed and discharge instructions for continued care and workup. If unable to arrange follow-up, patient is to return to the emergency department for reassessment. Patient (parent or legal guardian if applicable) was given verbal and written discharge instructions and acknowledges understanding. ADDITIONAL MDM REVIEW OF EXTERNAL, NON-ED RECORDS: EXTERNAL RECORDS REVIEWED. DISCUSSION WITH INDEPENDENT HISTORIAN (EMS, FAMILY) HISTORY OBTAINED FROM THE PATIENT/PARENTS (IF APPLICABLE) AT BEDSIDE CHRONIC CONDITIONS AFFECTING CARE: NONE SOCIAL DETERMINANTS OF HEALTH AFFECTING CARE: NONE CONSIDERATION OF ADMISSION (OBSERVATION OR ADMISSION): I CONSIDERED ESCALATION OF CARE TO ADMISSION FOR THIS PATIENT, HOWEVER GIVEN THE REASSURING WORKUP, THE PATIENT IS SAFE FOR OUTPATIENT MANAGEMENT. DISCUSSION WITH THE RADIOLOGY: NO TESTS CONSIDERED BUT NOT PERFORMED: PRESCRIPTION MEDICATION CONSIDERED BUT NOT GIVEN: 12 LEAD EKG INTERPRETATION: Time of 1ST Reevaluation: 15:30 Reevaluation 1ST: Unchanged Patient Education/Counseling: Diagnosis, Treatment, Prognosis Family Education/Counseling: No Family Present SEPSIS Sepsis Screen Date sepsis recognized/suspect: Apr 11, 2025 Time Sepsis recognized/suspect: 1350 Recent Procedure: No On Antibiotic Therapy: No Respiratory Rate >20: No Heart Rate >90: Yes Temp<36 C (96.8 F) or >38.3 C: No SBP <90 or MAP <65 mmHG: No New Acute Mental Status Change: No Is the patient on CPAP, BIPAP,: No Vital Signs Date Time Temp Pulse Resp B/P (MAP) Pulse Ox O2 Delivery O2 Flow Rate FiO2 04/11/25 13:50 98.6 96 18 145/96 95 98.6 Departure 1 Departure Time of Disposition: 14:51 Impression: Primary Impression: Otalgia, left ear Disposition: HOME / SELF CARE / HOMELESS Condition: Stable e-Prescriptions Ciprofloxacin-Dexamethasone (Ciprofloxacin/Dexamethaso 0.3-0.1 %) 1 Shea Shea 4 DROP OT BID for 7 Days, #5 ML 0 Refills Prov: ARELI MARCUM NP 04/11/25 Critical Care Note Critical Care Time?: No Stability Stability form required: No Heart Score Heart Score: Heart Score Response (Comments) Value History N/A 0 EKG N/A 0 Age N/A 0 Risk Factors N/A 0 Troponin N/A 0 Total 0 I personally scribed for AERLI MARCUM NP ([email or web address]) on 04/11/25 at 15:06. Electronically submitted by Yg Mckenna ([email or web address]). ARELI MARCUM NP Apr 11, 2025 14:52
== END 2025-04-11 15:03 | disposition home or self-care (01) ==
LOC: ER 13:47
DX: H92.02 Otalgia, left ear (principal)

== ENCOUNTER 2025-04-13 04:42 | Inpatient (IN) | payer OTHER ==
[~2025-04-13] VITALS: Ht 162.6 cm; Wt 77.5 kg
[~2025-04-13 04:42] MED LIST changes: +CIPR1SUS8 OT
--- NOTE | 2025-04-13 07:45 | ED.PDOC ---
HPI (NEURO) HPI Comments 59 y/o F, presents to the ED for CC of dizziness. Patient reports, she has been having symptoms of a left-earache with associated dizziness and a headache [id number]. Patient relays, symptoms then worsened as of this morning (04/13/25) with a syncopal episode. Patient further comments, that she has been seen at [facility] x3 prior for SS since, January of 2025 and has never received a Head CT; patient endorses concern. Patient denies any head injury, blurred vision, or ataxia. No other symptoms or modifying factors are present at this time. Chief Complaint: Dizziness Time Seen by MD: 07:00 Reviewed Notes: Nurses Notes, Medications, Allergies Information Source: Patient Mode of Arrival: Ambulatory Severity: Moderate Dizziness/Weakness Severity: Unable to do activities Headache Severity: Moderate Timing: Months Duration: Since onset Prehospital treatment: None Headache Location: Generalized Weakness Location: Generalized Onset: At rest Circumstances: Spontaneous Symptoms: Syncope Before: Normal During: Awake After: Normal Mentation History of: None Modifying factors: Nothing Associated Signs and Symptoms: Headache Past Medical History PAST MEDICAL HISTORY: Denies Surgical History: Denies all surgeries BLACK TOPPER History: No Pertinent BLACK TOPPER History Family History Family History: Reviewed,noncontributory to illness, Unknown Social History Smoker: Non-Smoker Alcohol: Denies ETOH Use Drugs: Denies Drug Use Lives In: Home Constitutional: denies: chills, diaphoresis, fatigue, fever, malaise, sweats, weakness, others EENTM: reports: ear pain; denies: blurred vision, double vision, ear bleeding, ear discharge, ear drainage, ear ringing, eye pain, eye redness, hearing loss, mouth pain, mouth swelling, nasal discharge, nose bleeding, nose congestion, nose pain, photophobia, tearing, throat pain, throat swelling, voice changes, others Respiratory: denies: cough, hemoptysis, orthopnea, SOB at rest, shortness of breath, SOB with excertion, stridor, wheezing, others Cardiovascular: denies: chest pain, dizzy spells, diaphoresis, Dyspnea on exertion, edema, irregular heart beat, left arm pain, lightheadedness, palpitations, PND, syncope, others Gastrointestinal: denies: abdomen distended, abdominal pain, blood streaked bowels, constipated, diarrhea, dysphagia, difficulty swallowing, hematemesis, melena, nausea, poor appetite, poor fluid intake, rectal bleeding, rectal pain, vomiting, others Genitourinary: denies: abnormal vagina bleeding, burning, dyspareunia, dysuria, flank pain, frequency, hematuria, incontinence, pain, , vagina discharge, urgency, others Neurological: reports: dizziness, headache; denies: fainting, left sided numbness, left sided weakness, numbness, paresthesia, pre-existing deficit, right sided numbness, right sided weakness, seizure, speech problems, tingling, tremors, weakness, others Musculoskeletal: denies: back pain, gout, joint pain, joint swelling, muscle pain, muscle stiffness, neck pain, others Integumetry: denies: bruises, change in color, change in hair/nails, dryness, laceration, lesions, lumps, rash, wounds, others Allergic/Immunocompromised: denies: Difficulty Healing, Frequent Infections, Hives, Itching, others Hematologic/Lymphatic: denies: anemia, blood clots, easy bleeding, easy bruising, swollen glands, others Endocrine: denies: excessive hunger, excessive sweating, excessive thirst, excessive urination, flushing, intolerance to cold, intolerance to heat, unexplained weight gain, unexplained weight loss, others Psychiatric: denies: anxiety, bipolar disorder, depression, hopeless, panic disorder, schizophrenia, sleepless, suicidal, others All Other Systems: Reviewed and Negative Physical Exam General Appearance: No Apparent Distress, Normal HEENT: Normal ENT Inspection, Pharynx Normal Neck: Full Range of Motion, Non-Tender, Normal, Normal Inspection Respiratory: Chest Non-Tender, Lungs Clear, No Accessory Muscle Use, No Respiratory Distress, Normal Breath Sounds Cardiovascular: No Edema, No Murmur, No Gallop, Normal Peripheral Pulses, Re gular Rate/Rhythm Breast Exam: Deferred Gastrointestinal: No Organomegaly, Non Tender, No Pulsatile Mass, Normal Bowel Sounds, Soft Genitalia: Deferred Pelvic: Deferred Rectal: Deferred Extremities: No calf tenderness, Normal capillary refill, Normal inspection, Normal range of motion, Non-tender, No pedal edema Musculoskeletal : Apperance: Normal Neurologic: Alert, hide washer II-XII nml as Tested, No Motor Deficits, Normal Affect, Normal Mood, No Sensory Deficits Cerebellar Function: Normal Reflexes: Normal Skin: Dry, Normal Color, Warm Lymphatic: No Adenopathy Was a procedure done? Was a procedure done?: No Differential Diagnosis (SZ) General Weakness: Hypoglycemia, Hypotension, Labyrinthitis, Meniere's disease, Vertigo: central, Vertigo: peripheral X-Ray, Labs, Meds, VS Vital Signs Date Time Temp Pulse Resp B/P (MAP) Pulse Ox O2 Delivery O2 Flow Rate FiO2 04/13/25 07:23 98.1 77 20 171/92 (118) 94 98.1 04/13/25 04:45 97.4 85 18 143/87 96 97.4 Lab Test 04/13/25 07:55 04/13/25 07:26 Range/Units White Blood Count 5.2 4.4-10.8 10^3/uL Red Blood Count 4.62 4.0-5.20 10^6/uL Hemoglobin 14.7 12.2-16.2 g/dL Hematocrit 42.6 36.0-46.0 % Mean Corpuscular Volume 92.2 80.0-100.0 fL Mean Corpuscular Hemoglobin 31.8 28.0-32.0 pg Mean Corpuscular Hemoglobin Concent 34.5 32.0-36.0 g/dL Red Cell Distribution Width 12.0 11.8-14.3 % Platelet Count 249 140-450 10^3/uL Mean Platelet Volume 8.7 6.9-10.8 fL Neutrophils (%) (Auto) 63.6 37.0-80.0 % Lymphocytes (%) (Auto) 31.1 10.0-50.0 % Monocytes (%) (Auto) 4.0 0.0-12.0 % Eosinophils (%) (Auto) 0.8 0.0-7.0 % Basophils (%) (Auto) 0.5 0.0-2.0 % Neutrophils # (Auto) 3.3 1.6-8.6 10 ^3/uL Lymphocytes # (Auto) 1.6 0.4-5.4 10 ^3/uL Monocytes # (Auto) 0.2 0-1.3 10 ^3/uL Eosinophils # (Auto) 0 0-0.8 10 ^3/uL Basophils # (Auto) 0 0-0.2 10 ^3/uL Nucleated Red Blood Cells 0.1 % Sodium Level 142 136-145 mmol/L Potassium Level 4.3 3.5-5.1 mmol/L Chloride Level 106 98-107 mmol/L Carbon Dioxide Level 25 20-31 mmol/L Anion Gap 11 5-15 Blood Urea Nitrogen 12 9-23 mg/dL Creatinine 0.71 0.550-1.02 mg/dL Glomerular Filtration Rate Calc 99 >90 mL/min BUN/Creatinine Ratio 16.9 10.0-20.0 Serum Glucose 114 H 74-106 mg/dL Calcium Level 9.7 8.7-10.4 mg/dL Troponin I High Sensitivity < 3 L </=34 ng/L Urine Color Light-yellow Yellow Urine Clarity Clear Clear Urine pH 7.0 5.0-9.0 Urine Specific [place] 1.013 1.001-1.035 Urine Protein Negative Negative Urine Ketones Negative Negative Urine Blood Negative Negative /uL Urine Nitrite Negative Negative Urine Bilirubin Negative Negative Urine Urobilinogen Normal Negative mg/dL Urine Leukocyte Esterase 3+ Negative /uL Urine RBC 1 0 - 4 /hpf Urine Microscopic WBC 11 H 0-5 /HPF Urine Squamous Epithelial Cells Few <5 /hpf Urine Bacteria None seen None Seen /hpf Urine Glucose Normal Normal mg/dL Time of 1ST Reevaluation: 07:30 Reevaluation 1ST: Unchanged Patient Education/Counseling: Diagnosis, Treatment Family Education/Counseling: No Family Present Departure 1 Departure Time of Disposition: 08:25 (Patient is not septicPatient presented with syncope today and should be admitted. Data: 1. I ordered and reviewed the result of at least 3 labs including a CBC, BMP, and troponin. 2. I independently interpreted the following tests: EKG which shows a sinus arrhythmia and a chest x-ray which shows benign chest and a CT head which shows benign brain.Risk:This patient has a high risk of morbidity due to further diagnostic testing or treatment and may suffer from an acute cardiac, neurologic, or infectious disorder. Rationale: Patient should be admitted to the hospital for further management.) Impression: Primary Impression: Syncope and collapse Additional Impressions: Generalized weakness Acute cystitis Qualified Codes: N30.01 - Acute cystitis with hematuria Disposition: ADMITTED INPATIENT Admit to: Med Surg Condition: Serious Critical Care Note Critical Care Time?: Yes Critical care comment: Syncope and collapse Authorized and Performed by: Eduar Hyatt MD Total critical care time: Approximately 37 minutes Due to a high probability of clinically significant, life threatening deterioration, the patient required my highest level of preparedness to intervene emergently and I personally spent this critical care time directly and personally managing the patient. This critical care time included obtaining a history; examining the patient; pulse oximetry; ordering and review of studies; arranging urgent treatment with development of a management plan; evaluation of patient's response to treatment; frequent reassessment; and, discussions with other providers. This critical care time was performed to assess and manage the high probability of imminent, life-threatening deterioration that could result in multi-organ failure. It was exclusive of separately billable procedures and treating other patients and teaching time. Please see my other sections and the rest of the note for further information on patient assessment and treatment. Stability Stability form required: No Heart Score Heart Score: Heart Score Response (Comments) Value History N/A 0 EKG N/A 0 Age N/A 0 Risk Factors N/A 0 Troponin N/A 0 Total 0 I personally scribed for EDUAR HYATT MD ([email or web address]) on 04/13/25 at 07:45. Electronically submitted by Alison Perez ([email or web address]). EDUAR HYATT MD Apr 13, 2025 07:45
[2025-04-13 08:08] LABS: Hematocrit 42.6 % (36.0-46.0); Hemoglobin 14.7 g/dL (12.2-16.2); Mean Corpuscular Hemoglobin 31.8 pg (28.0-32.0); Mean Corpuscular Volume 92.2 fL (80.0-100.0); Nucleated Red Blood Cells % 0.1 %
[2025-04-13 08:13] LABS: Chloride 106 mmol/L (98-107); Potassium 4.3 mmol/L (3.5-5.1); Sodium 142 mmol/L (136-145)
[2025-04-13 08:14] LABS: Anion Gap 11 (5-15); Calcium 9.7 mg/dL (8.7-10.4); Carbon Dioxide 25 mmol/L (20-31)
--- NOTE | 2025-04-13 08:14 | DVH ---
EXAM: CT HEAD WITHOUT CONTRAST INDICATION: syncope TECHNIQUE: CT of the head without intravenous contrast. Radiation Dose : 1. Head: CT Dose: CTDI volume is 50.1 mGy. Dose-length product is 702.76 mGy*cm The dose indicators for CT are the volume Computed Tomography (CT) Dose Index (CTDIvol) and the Dose Length Product (DLP), and are measured in units of mGy and mGy-cm, respectively. These indicators are not patient dose, but values generated from the CT scanner acquisition factors. The report includes radiation exposure data for exposures received during this examination. COMPARISON: MRI BRAIN HEAD WO CONTRAST on DOS: 12/29/24, CT HEAD WITHOUT CONTRAST on DOS: 12/28/24 FINDINGS: There is no evidence of acute intracranial hemorrhage, extra-axial collection, mass effect, midline s hift, herniation or hydrocephalus. The ventricles, sulci and cisterns are age appropriate. The suresh-white differentiation is intact. The visualized paranasal sinuses and mastoid air cells are clear. The surrounding soft tissues and osseous structures are unremarkable. IMPRESSION: No acute intracranial abnormality. Radiation optimization: All CT scans at this facility use at least one of these dose optimization celia hniques: automated exposure control mA and/or kV adjustment per patient size (includes targeted exam s where dose is matched to clinical indication) or iterative reconstruction.
[2025-04-13 08:18] LABS: Urine Protein, UAD Negative (Negative)
[2025-04-13 08:19] LABS: BUN/Creatinine Ratio 16.9 (10.0-20.0); Blood Urea Nitrogen 12 mg/dL (9-23)
--- NOTE | 2025-04-13 08:20 | DVH ---
EXAM: XY CHEST PORTABLE Indication: syncope Technique: Single frontal view of the chest was obtained Comparison: XY CHEST PORTABLE on DOS: 12/28/24 FINDINGS: Lines and Tubes: None Lungs: No focal consolidation. Pleura: No effusion. No pneumothorax. Cardiomediastinal contours: Unremarkable Bones: No acute osseous abnormality. IMPRESSION: No acute cardiopulmonary disease.
[2025-04-13 08:21] LABS: Glucose 114 mg/dL (74-106)
[2025-04-13 09:41] VITALS: PULSE 84; RESP 16; O2SAT 98
[2025-04-13] MEDS ORDERED: DEXTROSE (50%) 50ML SYRG IV PRN (09:45)
[2025-04-13] MEDS ORDERED: ONDANSETRON HCL 4 MG/2 ML VIAL IV PRN (09:45)
--- NOTE | 2025-04-13 09:49 | DVHHP2 ---
History of Present Illness Reason for Visit: Dizziness History of Present Illness Cheryl Alvarado is a 59-year-old female with past medical history of keloid surgery on breast, hypertension, hyperlipidemia, diabetes, and hysterectomy who presents to the ED with dizziness and headache x2 months. Patient reports that this morning it had worsened and also had a syncopal episode. She also reports that she was at this hospital 3 times since January of this year with the same symptoms. Patient also reported that she fell yesterday and caught herself with her left hand, denies hitting her head on the ground or losing consciousness. Patient also endorses that she had seen an ear doctor recently and was prescribed fluticasone, Zyrtec, and Afrin. Patient reports that the last time she was here in this hospital she had eardrops administered which did not work. Patient reports that her hearing loss is worse on the right greater than left, which was recently diagnosed by her ear doctor. Patient denies any recent travels, recent sick contacts, recent ingestion of spoiled food, chest pain, shortness of breath, fever, chills, weakness, abdominal pain, nausea, vomiting, diarrhea, or urinary symptoms. Patient reports that she is compliant with her medications. Cardiovascular: HTN, hyperipidemia Endocrine: Diabetes Past Medical History Hearing loss bilateral Past Surgical History: Hysterectomy, Other (Kilos surgery on breast) Family History: None Smoke: No ALCOHOL: none Drugs: None Lives: with Family Domestic Violence: Neg Review of Systems Constitutional: Yes: Other (Dizziness) Allergies: Coded Allergies: No Known Drug Allergy (Verified Allergy, Unknown, 12/28/24) Exam Vital Signs Vital Signs Date Time Temp Pulse Resp B/P (MAP) Pulse Ox O2 Delivery O2 Flow Rate FiO2 04/13/25 07:23 98.1 77 20 171/92 (854) 94 98.1 General Appearance: Alert, Oriented X3, Cooperative, No acute distress HEENT: Atraumatic, PERRLA, EOMI, Mucous membr. moist/pink Respiratory: Clear to auscultation, Normal air movement Cardiovascular: Regular rate, Normal S1, Normal S2 Abdominal: Normal bowel sounds, Soft Extremities: Normal pulses Skin: No significant lesion Neuro: Normal gait, Normal speech, Strength at 5/5 X4 ext, Normal tone, Sensation intact Psych/Mental Status: Mental status NL, Mood NL Labs/Xrays Labs Test 04/13/25 08:55 04/13/25 07:55 04/13/25 07:26 Range/Units White Blood Count 5.2 4.4-10.8 10^3/uL Red Blood Count 4.62 4.0-5.20 10^6/uL Hemoglobin 14.7 12.2-16.2 g/dL Hematocrit 42.6 36.0-46.0 % Mean Corpuscular Volume 92.2 80.0-100.0 fL Mean Corpuscular Hemoglobin 31.8 28.0-32.0 pg Mean Corpuscular Hemoglobin Concent 34.5 32.0-36.0 g/dL Red Cell Distribution Width 12.0 11.8-14.3 % Platelet Count 249 140-450 10^3/uL Mean Platelet Volume 8.7 6.9-10.8 fL Neutrophils (%) (Auto) 63.6 37.0-80.0 % Lymphocytes (%) (Auto) 31.1 10.0-50.0 % Monocytes (%) (Auto) 4.0 0.0-12.0 % Eosinophils (%) (Auto) 0.8 0.0-7.0 % Basophils (%) (Auto) 0.5 0.0-2.0 % Neutrophils # (Auto) 3.3 1.6-8.6 10 ^3/uL Lymphocytes # (Auto) 1.6 0.4-5.4 10 ^3/uL Monocytes # (Auto) 0.2 0-1.3 10 ^3/uL Eosinophils # (Auto) 0 0-0.8 10 ^3/uL Basophils # (Auto) 0 0-0.2 10 ^3/uL Nucleated Red Blood Cells 0.1 % Sodium Level 142 136-145 mmol/L Potassium Level 4.3 3.5-5.1 mmol/L Chloride Level 106 98-107 mmol/L Carbon Dioxide Level 25 20-31 mmol/L Anion Gap 11 5-15 Blood Urea Nitrogen 12 9-23 mg/dL Creatinine 0.71 0.550-1.02 mg/dL Glomerular Filtration Rate Calc 99 >90 mL/min BUN/Creatinine Ratio 16.9 10.0-20.0 Serum Glucose 114 H 74-106 mg/dL Calcium Level 9.7 8.7-10.4 mg/dL Urine Color Light-yellow Yellow Urine Clarity Clear Clear Urine pH 7.0 5.0-9.0 Urine Specific [place] 1.013 1.001-1.035 Urine Protein Negative Negative Urine Ketones Negative Negative Urine Blood Negative Negative /uL Urine Nitrite Negative Negative Urine Bilirubin Negative Negative Urine Urobilinogen Normal Negative mg/dL Urine Leukocyte Esterase 3+ Negative /uL Urine RBC 1 0 - 4 /hpf Urine Microscopic WBC 11 H 0-5 /HPF Urine Squamous Epithelial Cells Few <5 /hpf Urine Bacteria None seen None Seen /hpf Urine Glucose Normal Normal mg/dL EXAM: CT HEAD WITHOUT CONTRAST INDICATION: syncope TECHNIQUE: CT of the head without intravenous contrast. Radiation Dose : 1. Head: CT Dose: CTDI volume is 50.1 mGy. Dose-length product is 702.76 mGy*cm The dose indicators for CT are the volume Computed Tomography (CT) Dose Index (CTDIvol) and the Dose Length Product (DLP), and are measured in units of mGy and mGy-cm, respectively. These indicators are not patient dose, but values generated from the CT scanner acquisition factors. The report includes radiation exposure data for exposures received during this examination. COMPARISON: MRI BRAIN HEAD WO CONTRAST on DOS: 12/29/24, CT HEAD WITHOUT CONTRAST on DOS: 12/28/24 FINDINGS: There is no evidence of acute intracranial hemorrhage, extra-axial collection, mass effect, midline shift, herniation or hydrocephalus. The ventricles, sulci and cisterns are age appropriate. The suresh-white differentiation is intact. The visualized paranasal sinuses and mastoid air cells are clear. The surrounding soft tissues and osseous structures are unremarkable. IMPRESSION: No acute intracranial abnormality. EXAM: XY CHEST PORTABLE Indication: syncope Technique: Single frontal view of the chest was obtained Comparison: XY CHEST PORTABLE on DOS: 12/28/24 FINDINGS: Lines and Tubes: None Lungs: No focal consolidation. Pleura: No effusion. No pneumothorax. Cardiomediastinal contours: Unremarkable Bones: No acute osseous abnormality. IMPRESSION: No acute cardiopulmonary disease. SEPSIS Sepsis Screen Date sepsis recognized/suspect: Apr 13, 2025 Time Sepsis recognized/suspect: 0450 Recent Procedure: No On Antibiotic Therapy: No Respiratory Rate >20: No Heart Rate >90: No Temp<36 C (96.8 F) or >38.3 C: No SBP <90 or MAP <65 mmHG: No New Acute Mental Status Change: No Is the patient on CPAP, BIPAP,: No Physician Orders Chest Portable (04/13/25 07:11) Head Without Contrast (04/13/25 07:11) Electrocardigram (04/13/25 07:11) Troponin-I Hs (04/13/25 08:11) Troponin-I Hs (04/13/25 10:11) Electrocardigram (04/13/25 08:11) Electrocardigram (04/13/25 10:11) Vital Signs Date Time Temp Pulse Resp B/P (MAP) Pulse Ox O2 Delivery O2 Flow Rate FiO2 04/13/25 07:23 98.1 77 20 171/92 (118) 94 98.1 04/13/25 04:45 97.4 85 18 143/87 96 97.4 Laboratory Tests Test 04/13/25 07:55 White Blood Count 5.2 10^3/uL (4.4-10.8) Medications Medications Dose Ordered Sig/Xiomara Route Start Time Stop Time Status Last Admin Dose Admin Ceftriaxone Sodium 50 ml @ 100 mls/hr ONCE ONCE IV 04/13/25 08:30 04/13/25 08:59 DC 04/13/25 09:08 100 MLS/HR Assessment/Plan Assessment/Plan Assessment Autonomic imbalance likely due to UTI Recently diagnosed with hearing loss on both right and left ear History of hypertension History of hyperlipidemia History of diabetes History of hysterectomy History of keloid surgery and breast Plan [facility] IV antibiotics-ceftriaxone EKG Troponin noted CT head Chest x-ray UA Hemoglobin A1c ISS and Accu-Cheks Orthostatics UDS Carotid ultrasound Last echo on 12/29/2024 EF 65% Diet Home medications reconciled DVT prophylaxis-SCDs PUD prophylaxis-not indicated no history of GERD or GI bleed Discussed plan of care with patient and nurse [id number] Preventive counseling healthy eating habits, physical activity, and regular checkups Plan discussed with: Patient Date of Service: Apr 13, 2025 Billing Provider: JHONNY BEACH Common Visit Codes: [id number] INP/OBS CARE (HIGH) Secondary Visit Codes: [id number] COUNSELING IND JHONNY BEACH Apr 13, 2025 09:49
--- NOTE | 2025-04-13 12:05 | DVH ---
Carotid Duplex Date: 04/13/2025 11:23 AM Clinical History: dizziness Comparison: US CAROTID DUPLX W COLOR DOP on DOS: 12/28/24 Technique: Duplex Doppler evaluation of the extracranial carotid and vertebral arteries including col or Doppler and spectral/pulsed waveform analysis was performed. Findings: Velocities and ratios within normal limits. IMPRESSION: No hemodynamically significant stenosis noted in the right carotid system. No hemodynamically significant stenosis noted in the left carotid system. Reference: Radiology 2003; 229:[id number]
[2025-04-13] MEDS: InsuLIN REG 1unit/0.01ml Soln (100units/ml) SC SCH (14:02)
[2025-04-13] MEDS: ACCU-CHEK COMFORT CURVE STRIP VI SCH (14:02)
[2025-04-13 18:15] VITALS: PULSE 70; RESP 18; O2SAT 96
[2025-04-13 18:31] VITALS: BP 146/84; PULSE 64; RESP 16; TEMP 97.9; O2SAT 97
[2025-04-13 21:00] VITALS: BP 116/80; PULSE 78; RESP 17; TEMP 97.7; O2SAT 94
[2025-04-13] MEDS ORDERED: PATIENTS OWN MEDICATION (Atorvastatin Calcium 1 TAB) PO SCH (22:00)
[2025-04-13] MEDS: ATORVASTATIN 20 MG TAB PO SCH (22:14)
[2025-04-13 22:24] VITALS: BP 151/97; PULSE 73; RESP 18; TEMP 97.2; O2SAT 96
[2025-04-13 22:40] VITALS: BP 151/97; PULSE 73; RESP 18; TEMP 97.2; O2SAT 96
[2025-04-13] MEDS: ACETAMINOPHEN 325 MG TAB PO PRN (22:58)
[2025-04-14] VITALS (8 sets, daily range): BP systolic 112–149; BP diastolic 71–97; PULSE 61–88; RESP 17–18; TEMP 97.1–98.1; O2SAT 93–96
[2025-04-14 07:21] LABS: Amphetamine Screen, Urine Neg (NEGATIVE); Barbiturate Scree,Urine Neg (NEGATIVE); Benzodiazephine Screen, Urine Neg (NEGATIVE); Cannabinoid Screen, Urine Neg (NEGATIVE); Cocaine Screen, Urine Neg (NEGATIVE); Opiate Scree,Urine Neg (NEGATIVE); Phencyclidine Screen, Urine Neg (NEGATIVE)
[2025-04-14 07:39] LABS: Hematocrit 41.8 % (36.0-46.0); Hemoglobin 14.3 g/dL (12.2-16.2); Mean Corpuscular Hemoglobin 31.6 pg (28.0-32.0); Mean Corpuscular Volume 92.5 fL (80.0-100.0); Nucleated Red Blood Cells % 0.1 %
[2025-04-14 07:46] LABS: Albumin 4.8 g/dL (3.2-4.8); Alkaline Phosphatase 65 U/L (46-116); Anion Gap 12 (5-15); BUN/Creatinine Ratio 14.5 (10.0-20.0); Blood Urea Nitrogen 10 mg/dL (9-23); Calcium 9.7 mg/dL (8.7-10.4); Carbon Dioxide 25 mmol/L (20-31); Chloride 104 mmol/L (98-107); Potassium 4.0 mmol/L (3.5-5.1); Sodium 141 mmol/L (136-145); Total Protein 7.6 g/dL (5.7-8.2)
[2025-04-14 07:47] LABS: Alanine Aminotransferase 43 U/L (7-40); Bilirubin, Total 0.6 mg/dL (0.2-1.0); Glucose 114 mg/dL (74-106)
[2025-04-14] MEDS: LOSARTAN POTASSIUM 50 MG TAB PO SCH (09:17)
--- NOTE | 2025-04-14 16:43 | DVHPN2 ---
Subjective I am assuming the care of the patient from today onwards. Patient is here for lightheadedness dizziness and headache and near-syncope. 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 Medications Current Medications Medications Dose Ordered Sig/Xiomara Route Start Time Stop Time Status Last Admin Dose Admin Ceftriaxone Sodium 50 ml @ 100 mls/hr DAILY@09 IV 04/14/25 09:00 04/14/25 09:18 100 MLS/HR Diagnostic Test (Pha) 1 strip ACHS 04/13/25 11:30 04/14/25 16:33 1 STRIP Insulin Human Regular ACHS SC 04/13/25 11:30 04/14/25 06:09 2 UNITS Dextrose 50 ml UD PRN IV 04/13/25 09:45 Ondansetron HCl 4 mg Q4HP PRN IV 04/13/25 09:45 Acetaminophen 650 mg Q6HP PRN PO 04/13/25 09:45 04/14/25 12:05 650 MG Patient Own Medication 1 tab HS PO 04/13/25 22:00 UNV Losartan Potassium 100 mg DAILY PO 04/14/25 10:00 04/14/25 09:17 100 MG Atorvastatin Calcium 10 mg HS PO 04/13/25 22:00 04/13/25 22:14 10 MG Laboratory Results Laboratory Tests 04/14/25 06:34 Chemistry Test 04/14/25 06:34 Albumin 4.8 g/dL (3.2-4.8) Calcium Level 9.7 mg/dL (8.7-10.4) Total Protein 7.6 g/dL (5.7-8.2) LFT Test 04/14/25 06:34 Alanine Aminotransferase (ALT) 43 U/L (7-40) H Alkaline Phosphatase 65 U/L (46-116) Aspartate Amino Transferase (AST) 26 U/L (13-40) Total Bilirubin 0.6 mg/dL (0.2-1.0) Urinalysis Test 04/13/25 07:26 Urine Color Light-yellow (Yellow) Urine Clarity Clear (Clear) Urine pH 7.0 (5.0-9.0) Urine Specific [place] 1.013 (1.001-1.035) Urine Protein Negative (Negative) Urine Ketones Negative (Negative) Urine Blood Negative /uL (Negative) Urine Nitrite Negative (Negative) Urine Bilirubin Negative (Negative) Urine Urobilinogen Normal mg/dL (Negative) Urine Leukocyte Esterase 3+ /uL (Negative) Urine RBC 1 /hpf (0 - 4) Urine Microscopic WBC 11 /HPF (0-5) H Urine Squamous Epithelial Cells Few /hpf (<5) Urine Bacteria None seen /hpf (None Seen) Urine Glucose Normal mg/dL (Normal) Assessment/Plan Assessment/Plan 59-year-old female with a known history of diabetes mellitus type 2, hypertension, dyslipidemia, recently diagnosed of hearing loss on both ears partially is being followed by ENT presented to the hospital with headache, dizziness and near-syncope found to have 1. Headache and dizziness with a near-syncope ruled out orthostatic hypotension 2. Hearing loss 3. Diabetes mellitus type 2 4. Hypertension 5. Dyslipidemia -patient's CT head shows no evidence of any acute infarct, carotid ultrasound shows no significant stenosis, check orthostatic vitals. Plan of care discussed with the patient who understand verbalized understanding and agreeable-to plan -patient needs to follow up with the ENT specialist as an outpatient. Plan discussed with: Patient Date of Service: Apr 14, 2025 Billing Provider: DEON CID MD Common Visit Codes: [id number] INP/OBS CARE(HIGH) DEON CID MD Apr 14, 2025 16:43
[2025-04-15 01:00] VITALS: BP 131/90; PULSE 18; PULSE 62; TEMP 97.6; O2SAT 95
[2025-04-15] MEDS: HYDROcodone-ACET 5/325MG TAB PO PRN (02:04)
[2025-04-15 05:00] VITALS: BP 115/79; PULSE 69; TEMP 97.9; O2SAT 93
[2025-04-15 08:20] VITALS: BP 114/79; PULSE 67; RESP 17; TEMP 97.8; O2SAT 95
--- NOTE | 2025-04-15 11:18 | DVH ---
CLINICAL HISTORY: Head throbbing TECHNIQUE: Routine multiplanar imaging of the brain was performed without gadolinium contrast. COMPARISON: CT HEAD WITHOUT CONTRAST on DOS: 04/13/25, MRI BRAIN HEAD WO CONTRAST on DOS: 12/29/24, CT HEAD WITHOUT CONTRAST on DOS: 12/28/24 FINDINGS: There is no abnormal restricted diffusion to suggest acute infarction. There are a few punctate foci of T2 hyperintensity within the white matter both cerebral hemispheres, of doubtful clinical significance. There is no evidence for acute ischemic changes, mass, mass effect, or extra-axial fluid collection. There is no hydrocephalus or midline shift. The cerebral sulci and subarachnoid cisterns are not effa valerie. The imaged paranasal sinuses are clear. The globes are intact. The midline structures, including the corpus callosum, are unremarkable. The intracranial flow voids are maintained. IMPRESSION: No acute intracranial abnormality seen. No evidence for acute infarct.
[2025-04-15 12:10] VITALS: BP_SYST 113; BP_SYST 118; BP_SYST 123; BP_DIAS 78; BP_DIAS 81; BP_DIAS 82; PULSE 61; PULSE 74; PULSE 75; RESP 17; TEMP 97.7; O2SAT 94
[2025-04-15] MEDS ORDERED: POM (12:21)
[2025-04-15 16:00] VITALS: BP 119/76; PULSE 76; RESP 17; TEMP 97.9; O2SAT 94
[2025-04-15] MEDS ORDERED: CEFD300C2 PO (17:07)
--- NOTE | 2025-04-15 17:11 | DVHDS2 ---
Discharge Summary Date of Admission Apr 13, 2025 at 09:44 Date of Discharge: Apr 15, 2025 Labs/Diagnostic Data: Laboratory Results Test 04/15/25 16:40 04/14/25 06:34 04/14/25 06:00 04/13/25 08:55 POC Glucose 122 mg/dl (70-106) White Blood Count 5.3 10^3/uL (4.4-10.8) Red Blood Count 4.52 10^6/uL (4.0-5.20) Hemoglobin 14.3 g/dL (12.2-16.2) Hematocrit 41.8 % (36.0-46.0) Mean Corpuscular Volume 92.5 fL (80.0-100.0) Mean Corpuscular Hemoglobin 31.6 pg (28.0-32.0) Mean Corpuscular Hemoglobin Concent 34.2 g/dL (32.0-36.0) Red Cell Distribution Width 12.2 % (11.8-14.3) Platelet Count 250 10^3/uL (140-450) Mean Platelet Volume 9.1 fL (6.9-10.8) Neutrophils (%) (Auto) 59.8 % (37.0-80.0) Lymphocytes (%) (Auto) 33.5 % (10.0-50.0) Monocytes (%) (Auto) 4.9 % (0.0-12.0) Eosinophils (%) (Auto) 1.3 % (0.0-7.0) Basophils (%) (Auto) 0.5 % (0.0-2.0) Neutrophils # (Auto) 3.2 10 ^3/uL (1.6-8.6) Lymphocytes # (Auto) 1.8 10 ^3/uL (0.4-5.4) Monocytes # (Auto) 0.3 10 ^3/uL (0-1.3) Eosinophils # (Auto) 0.1 10 ^3/uL (0-0.8) Basophils # (Auto) 0 10 ^3/uL (0-0.2) Nucleated Red Blood Cells 0.1 % Sodium Level 141 mmol/L (136-145) Potassium Level 4.0 mmol/L (3.5-5.1) Chloride Level 104 mmol/L (98-107) Carbon Dioxide Level 25 mmol/L (20-31) Anion Gap 12 (5-15) Blood Urea Nitrogen 10 mg/dL (9-23) Creatinine 0.69 mg/dL (0.550-1.02) Glomerular Filtration Rate Calc 101 mL/min (>90) BUN/Creatinine Ratio 14.5 (10.0-20.0) Serum Glucose 114 mg/dL (74-106) Calcium Level 9.7 mg/dL (8.7-10.4) Total Bilirubin 0.6 mg/dL (0.2-1.0) Aspartate Amino Transferase (AST) 26 U/L (13-40) Alanine Aminotransferase (ALT) 43 U/L (7-40) Alkaline Phosphatase 65 U/L (46-116) Total Protein 7.6 g/dL (5.7-8.2) Albumin 4.8 g/dL (3.2-4.8) Urine Opiates Screen Neg (NEGATIVE) Urine Fentanyl Screen Neg (NEGATIVE) Urine Barbiturates Screen Neg (NEGATIVE) Urine Phencyclidine Screen Neg (NEGATIVE) Urine Amphetamines Screen Neg (NEGATIVE) Urine Benzodiazepines Screen Neg (NEGATIVE) Urine Cocaine Screen Neg (NEGATIVE) Urine Cannabinoids Screen Neg (NEGATIVE) Troponin I High Sensitivity < 3 ng/L (</=34) Test 04/13/25 07:55 04/13/25 07:26 Hemoglobin A1c 6.2 % A1C (<5.7) Urine Color Light-yellow (Yellow) Urine Clarity Clear (Clear) Urine pH 7.0 (5.0-9.0) Urine Specific [place] 1.013 (1.001-1.035) Urine Protein Negative (Negative) Urine Ketones Negative (Negative) Urine Blood Negative /uL (Negative) Urine Nitrite Negative (Negative) Urine Bilirubin Negative (Negative) Urine Urobilinogen Normal mg/dL (Negative) Urine Leukocyte Esterase 3+ /uL (Negative) Urine RBC 1 /hpf (0 - 4) Urine Microscopic WBC 11 /HPF (0-5) Urine Squamous Epithelial Cells Few /hpf (<5) Urine Bacteria None seen /hpf (None Seen) Urine Glucose Normal mg/dL (Normal) Other Laboratory Tests 04/14/25 06:34 Brief Hx & Hospital Course: 59-year-old female with a known history of diabetes mellitus type 2, hypertension, dyslipidemia, recently diagnosed of hearing loss on both ears partially is being followed by ENT presented to the hospital with headache, dizziness and near-syncope, eventually patient was admitted to telemetry. Patient does have known history of hearing loss currently being followed by ENT specialist. Patient was ruled out for orthostatic hypotension. Patient underwent CT CT head noncontrast which shows no evidence of any acute infarct, carotid ultrasound shows no evidence of significant stenosis, MRI brain shows no evidence of acute infarct. Patient is being discharged under stable condition with a close follow up as an outpatient with the PCP as well as ENT specialist. Please follow up with your PCP for further follow up. Condition at Discharge: Stable Final Diagnosis/Problems List 59-year-old female with a known history of diabetes mellitus type 2, hypertension, dyslipidemia, recently diagnosed of hearing loss on both ears partially is being followed by ENT presented to the hospital with headache, dizziness and near-syncope found to have 1. Headache and dizziness with a near-syncope ruled out orthostatic hypotension 2. Hearing loss 3. Diabetes mellitus type 2 4. Hypertension 5. UTI, we will be given p.o. antibiotics for next three more days. 5. Dyslipidemia Discharge Disposition: Home SNF Discharge Will this Physician continue t: No Discharge Instruct/Medications Diet: Cardiac 2g Na,low cholest Activity: No Restrictions, As Tolerated Follow Up/Referral: Follow up with the PCP in one week Follow up with your ENT specialist in one week Medications: Resume home medication new medication as prescribed New Medications: Cefdinir (Cefdinir) 300 Mg Cap 1 CAP PO BID for 3 Days, #6 CAP Continued Medications: Atorvastatin Calcium (Atorvastatin Calcium) 10 Mg Tab 1 TAB PO HS Ciprofloxacin-Dexamethasone (Ciprofloxacin/Dexamethaso 0.3-0.1 %) 1 [place] 4 DROP OT BID for 7 Days, #5 ML 0 Refills Ibuprofen (Ibuprofen) 600 Mg Tab 1 TAB PO TID, #30 TAB Losartan Potassium (Losartan Potassium) 100 Mg Tab 1 TAB PO DAILY Metformin Hydrochloride (Metformin Hcl) 500 Mg Tab 1 TAB PO DAILY Patients Own Medication (Patients Own Medication) . PTS OWN MED-OBTAIN FROM PT AND SEND TO RX DRUG: [facility] FREQ: RX# EXP: DATE DISP: TECH: RPH: Discontinued Medications: Amoxicillin & Pot Clavulanate (Augmentin Tablet) 875 Mg Tb 875 MG PO BID, #20 TAB Scheduled Amoxicillin & Pot Clavulanate (Augmentin Tablet), 875 MG PO BID Atorvastatin Calcium (Atorvastatin Calcium), 1 TAB PO HS, (Reported) Cefdinir (Cefdinir), 1 CAP PO BID Ciprofloxacin-Dexamethasone (Ciprofloxacin/Dexamethaso 0.3-0.1 %), 4 DROP OT BID Ibuprofen (Ibuprofen), 1 TAB PO TID Losartan Potassium (Losartan Potassium), 1 TAB PO DAILY, (Reported) Metformin Hydrochloride (Metformin Hcl), 1 TAB PO DAILY, (Reported) Miscellaneous Medications Patients Own Medication (Patients Own Medication), (Reported) Discharge Statement: "Patient was advised to return to the ER or call 911 if any headaches, dizziness, shortness of breath, chest pain, abdominal pain, bleeding, fevers, or worsening of medical condition. Patient was counseled about treatment plan, medications, possible side effects, patientverbalized understanding. All questions were answered to the best of my ability. This discharge took greater then 30 minutes in planning, reviewing documentation, counseling the patient, and discussing with other team members." ASSESSMENT ASSESSMENT Assessment 59-year-old female with a known history of diabetes mellitus type 2, hypertension, dyslipidemia, recently diagnosed of hearing loss on both ears partially is being followed by ENT presented to the hospital with headache, dizziness and near-syncope found to have 1. Headache and dizziness with a near-syncope ruled out orthostatic hypotension 2. Hearing loss 3. Diabetes mellitus type 2 4. Hypertension 5. Dyslipidemia Date of Service: Apr 15, 2025 Billing Provider: DEON CID MD Common Visit Codes: 01660-JXQ/[id number] DISCH DAY >30min DEON CID MD Apr 15, 2025 17:10
[2025-04-15 19:40] VITALS: BP 119/76; PULSE 76; RESP 17; TEMP 97.9; O2SAT 94
[2025-04-15] MEDS ORDERED: DEXAMETHASONE 0.1% EACH EAR SCH (22:00)
[2025-04-15] MEDS ORDERED: CIPROFLOXACIN EACH EAR SCH (22:00)
== END 2025-04-15 20:17 | disposition home or self-care (01) | DRG 48 ==
LOC: ER 04:42 → OVERFLOW 09:44 → WEST WING 22:25
PROVIDERS: ADMIT Internal Medicine; ATTEND Internal Medicine
DX: G90.89 Other disorders of autonomic nervous system (principal); E11.9 Type 2 diabetes mellitus without complications; N30.00 Acute cystitis without hematuria; E78.5 Hyperlipidemia, unspecified; I10 Essential (primary) hypertension; Z90.710 Acquired absence of both cervix and uterus
CPT/HCPCS: 36415; 70450; 70551; 71045; 80048; 80053; 80307; 81001; 82962; 83036; 84484; 85025; 93886; 99291; G0378; J1815